=== PATIENT | male | born 1995 | race Caucasian/White ===

== ENCOUNTER 2017-04-15 19:16 | Emergency (ER) | payer OTHER ==
[2017-04-15 19:22] VITALS: BP 121/77
[2017-04-15] MEDS ORDERED: LIDOCAINE 1% 2 ML VIAL ONE (19:34)
--- NOTE | 2017-04-15 19:38 | ED Physician Documentation ---
PD HPI UPPER EXT INJURY - Stated complaint Stated Complaint: LEFT THUMB LACERATION - Chief complaint Chief Complaint: Laceration - History obtained from History obtained from: Patient - History of Present Illness Location: Left, Other (thumb) Type of injury: Laceration Where injury occurred: Home Timing - duration: Hours (1) Timing - details: Abrupt onset Pain level max: 3 Pain level now: 2 Improved by: Rest Worsened by: Moving, Palpating Associated symptoms: No: Weakness, Numbness, Tingling, Swelling Contributing factors: No: Anticoagulated, Prior ortho surgery - Additonal information Additional information: cut hand on a catch basin cleaner that was off. L thumb laceration. Tetanus UTD. Pt is right handed. Review of Systems Neurologic: denies: Focal weakness, Numbness PD PAST MEDICAL HISTORY - Past Medical History Past Medical History: No - Past Surgical History Past Surgical History: Yes General: Other - Social History Does the pt smoke?: Yes Smoking Status: Current every day smoker Does the pt drink ETOH?: Yes Does the pt have substance abuse?: No - Immunizations Immunizations are current?: Yes PD ED PE NORMAL - Vitals Vital signs reviewed: Yes - General General: Alert and oriented X 3, No acute distress - Derm Derm: Warm and dry - Neuro Neuro: Alert and oriented X 3 PD ED PE EXPANDED - Extremities LAKSHMI UE/Hands Visual: 1 - laceration (1cm, linear, subcutaneous. NVI. no tendon injury.) Results - Vitals Vitals: Vital Signs - 24 hr 04/15/17 19:21 Temperature 37 C Heart Rate 78 Respiratory 16 Rate Blood Pressure 121/77 O2 Saturation 98 Oxygen O2 Source Room air Procedures - Laceration (location) L thumb Length in cm: 1 Wound type: Linear Neurovascular status: Sensory intact, Motor intact, Vascular intact Tendon involvement: Tendon intact Anesthesia: Lidocaine 1% Wound Preparation: Irrigated copiously NS Skin layer closure: Nylon, Interrupted, Size #-0 - enter number (4), Sutures - enter # (3) Other: Patient tolerated well, No complications, Neurovascular intact, Dressing applied, Tetanus UTD Complexity: Simple PD MEDICAL DECISION MAKING - ED course Complexity details: considered differential, d/w patient ED course: Patient with a left thumb laceration. This was repaired. No foreign body. No tendon laceration. Warnings of infection and instructions on wound care given at bedside. Also counseled on how to minimize scarring. Patient counseled regarding signs and symptoms for which I believe and urgent re-evaluation would be necessary. Patient with good understanding of and agreement to plan and is comfortable going home at this time This document was made in part using voice recognition software. While efforts are made to proofread this document, sound alike and grammatical errors may occur. Departure - Departure Disposition: 01 Home, Self Care Clinical Impression: Laceration Condition: Good Instructions: ED Laceration Hand Follow-Up: RANDAL Cortes [Provider Group] Comments: Follow-up with your doctor in 10-14 days for suture removal. Return if you notice redness, swelling or drainage from the wound. Wear the splint for the next 48 hours.
== END 2017-04-15 19:42 | disposition home or self-care (01) ==
LOC: ED 19:16
DX: S61.012A Laceration without foreign body of left thumb without damage to nail, initial encounter (principal); W29.0XXA Contact with powered kitchen appliance, initial encounter; F17.200 Nicotine dependence, unspecified, uncomplicated
CPT/HCPCS: 12001; 99282; 99283

== ENCOUNTER 2019-02-08 03:45 | Observation (INO) | payer OTHER ==
[2019-02-08] MEDS ORDERED: HYDROmorphone 1 MG/ML CARPUJECT IVP STA ×2 (04:01→05:27)
[2019-02-08] MEDS ORDERED: SODIUM CHLORIDE 0.9% 1,000 ML IV ONE (04:01)
[2019-02-08] MEDS ORDERED: ONDANSETRON 4 MG/2 ML VIAL IVP STA (04:01)
--- NOTE | 2019-02-08 04:01 | ED Physician Documentation ---
PD HPI ABD PAIN - Stated complaint Stated Complaint: ABD PX - Chief complaint Chief Complaint: Abd Pain - History obtained from History obtained from: Patient - History of Present Illness Timing - onset: Today Timing - duration: Hours (7) Timing - details: Gradual onset Pain level now: 9 Quality: Stabbing Location: RUQ Radiation: No: Lower back Associated symptoms: Nausea, Vomiting. No: Fever, Diarrhea, Dysuria, Hematuria, Dizzy, Near syncope / syncope, Testicular pain Recently seen: Not recently seen - Additional information Additional information: This is a 23-year-old man who presents with complaints that there is something "in his stomach" and it hurts. About 9:00 last night he developed a stabbing twisting pain began vomiting. He has had 4 episodes of emesis last being here in the emergency department. Now the pain seems to be emanating from the right upper quadrant but it santamaria and shoots across the left upper abdomen. Denies any back pain. He has not had diarrhea. He ate some beef for dinner last night but does not think that that is what made him sick. He has not been around anyone else that he knows is ill. He denies any fever although he did break out in sweats. Denies testicular pain. No dysuria. No sore throat or coughing. The patient is in the [employer]. No history of any abdominal surgeries. Review of Systems Constitutional: reports: Sweats. denies: Fever Ears: denies: Ear pain Nose: denies: Congestion Throat: denies: Sore throat Cardiac: denies: Chest pain / pressure Respiratory: denies: Dyspnea, Cough GI: reports: Abdominal Pain, Nausea, Vomiting. denies: Constipation, Diarrhea : denies: Dysuria Musculoskeletal: denies: Back pain Neurologic: denies: Focal weakness, Near syncope PD PAST MEDICAL HISTORY - Past Surgical History Past Surgical History: Yes General: Other - Allergies Allergies/Adverse Reactions: Allergies Allergy/AdvReac Type Severity Reaction Status Date / Time No Known Drug Allergies Allergy Verified 02/08/19 03:54 - Social History Does the pt smoke?: Yes Smoking Status: Current every day smoker Does the pt drink ETOH?: Yes Does the pt have substance abuse?: No - Immunizations Immunizations are current?: Yes PD ED PE NORMAL - Vitals Vital signs reviewed: Yes - General General: Alert and oriented X 3, No acute distress, Well developed/nourished, Other (He is laying on the exam table on his R side with his left arm hanging off the side of the bed holding an emesis bag with frothy white liquid in it.) - HEENT HEENT: Atraumatic, PERRL, Moist mucous membranes - Neck Neck: No adenopathy - Cardiac Cardiac: RRR, No murmur, Strong equal pulses - Respiratory Respiratory: No respiratory distress, Clear bilaterally - Abdomen Abdomen: Soft, Other (Patient has diffuse tenderness and is pushing my hands away as I am palpating.). No: Normal bowel sounds (Hypoactive bowel tones) - Derm Derm: Normal color, Warm and dry, No rash - Neuro Neuro: Alert and oriented X 3, prestidigitator 2-12 intact, No motor deficit, No sensory deficit, Normal speech Results - Vitals Vitals: Vital Signs - 24 hr 02/08/19 02/08/19 03:50 06:09 Temperature 36.5 C Heart Rate 85 88 Respiratory 16 16 Rate Blood Pressure 133/98 H 101/51 L O2 Saturation 100 98 Oxygen O2 Source Room air - Labs Labs: Laboratory Tests 02/08/19 02/08/19 02/08/19 04:05 04:05 04:05 WBC 11.5 H RBC 4.70 Hgb 14.8 Hct 42.9 MCV 91.3 MCH 31.5 H MCHC 34.5 RDW 12.4 Plt Count 294 MPV 10.1 Neut # (Auto) 9.8 H Lymph # (Auto) 1.1 L [place] # (Auto) 0.5 Eos # (Auto) 0.1 Baso # (Auto) 0.1 Absolute Nucleated RBC 0.00 Nucleated RBC % 0.0 Sodium 141 Potassium 3.5 Chloride 99 L Carbon Dioxide 29 Anion Gap 13.0 BUN 15 Creatinine 1.1 Estimated GFR (MDRD) 82 L Glucose 136 H Calcium 10.2 Total Bilirubin 0.9 AST 23 ALT 20 Alkaline Phosphatase 52 Total Protein 8.5 H Albumin 5.2 Globulin 3.3 Albumin/Globulin Ratio 1.6 Lipase 27 Urine Color YELLOW Urine Clarity CLEAR Urine pH 7.5 Ur Specific [place] 1.015 Urine Protein NEGATIVE Urine Glucose (UA) NEGATIVE Urine Ketones 15 H Urine Occult Blood NEGATIVE Urine Nitrite NEGATIVE Urine Bilirubin NEGATIVE Urine Urobilinogen 1 (NORMAL) Ur Leukocyte Esterase NEGATIVE Ur Microscopic Review NOT INDICATED Urine Culture Comments NOT INDICATED Ethyl Alcohol 7.3 PD MEDICAL DECISION MAKING - ED course Complexity details: reviewed results, re-evaluated patient, d/w patient, d/w family, d/w hearing consultant ED course: Patient was given a liter of saline as well as Dilaudid 1 mg and Zofran 4 mg IV. He was feeling better so that he was still having some pain if he moved around. His abdomen now was soft but he was still guarding with some rebound particularly in the lower quadrants bilaterally. He was offered more pain medications which he declined and I have ordered a CT of the abdomen pelvis with IV contrast. 0611: Patient received another milligram of Dilaudid IV. The scan shows a small bowel obstruction. He has not had any prior surgeries. He reports a history of what sounds like an ileus when he was in his teens that required NG tube placement but no surgery related to a viral illness. Will discuss with the surgeon. NG tube ordered. 0633: Discussed with the surgeon Dr. Peña who will consult on the patient. Discussed with the hospitalist who has agreed to accept the patient for admission. The patient is aware of the diagnosis and plan. Departure - Departure Disposition: 66 [facility] DC/Xfer Clinical Impression: SBO (small bowel obstruction) Condition: Good
[2019-02-08 04:29] LABS: BASOPHILS # (AUTO) 0.1 10^3/uL (0.0-0.1); BASOPHILS % (AUTO) 0.4 %; EOSINOPHILS # (AUTO) 0.1 10^3/uL (0.0-0.7); EOSINOPHILS % (AUTO) 0.4 %; HGB - HEMOGLOBIN 14.8 g/dL (14.0-18.0); LYMPHOCYTES # (AUTO) 1.1 10^3/uL (1.5-3.5); LYMPHOCYTES % (AUTO) 9.3 %; MEAN CORPUSCULAR HEMOGLOBIN 31.5 pg (27.0-31.0); MEAN CORPUSCULAR HGB CONC 34.5 g/dL (32.0-36.0); MEAN CORPUSCULAR VOLUME 91.3 fL (80.0-94.0); MEAN PLATELET VOLUME 10.1 fL (7.4-11.4); MONOCYTES # (AUTO) 0.5 10^3/uL (0.0-1.0); MONOCYTES % (AUTO) 4.5 %; NEUTROPHILS # (AUTO) 9.8 10^3/uL (1.5-6.6); PLT - PLATELET COUNT 294 10^3/uL (130-450); RED CELL DISTRIBUTION WIDTH 12.4 % (12.0-15.0); WHITE BLOOD COUNT 11.5 x10^3/uL (4.8-10.8)
[2019-02-08 04:30] LABS: BILIRUBIN,URINE NEGATIVE (NEGATIVE); GLUCOSE, URINE (UA) NEGATIVE (NEGATIVE); KETONES,URINE (UA) 15 mg/dL (NEGATIVE); LEUKOCYTE ESTERASE, URINE NEGATIVE (NEGATIVE); NITRITE,URINE NEGATIVE (NEGATIVE); OCCULT BLOOD,URINE NEGATIVE (NEGATIVE); PH,URINE 7.5 PH (5.0-7.5); PROTEIN,URINE NEGATIVE (NEGATIVE); UROBILINOGEN,URINE 1 (NORMAL) E.U./dL (NORMAL)
[2019-02-08 04:31] LABS: CLARITY,URINE CLEAR (CLEAR)
[2019-02-08 04:37] LABS: ALBUMIN 5.2 g/dL (3.2-5.5); ALBUMIN/GLOBULIN RATIO 1.6 (1.0-2.2); BILIRUBIN,TOTAL 0.9 mg/dL (0.2-1.0); CALCIUM 10.2 mg/dL (8.5-10.3); CREATININE 1.1 mg/dL (0.6-1.2); TOTAL PROTEIN 8.5 g/dL (6.7-8.2)
[2019-02-08] MEDS ORDERED: IOVERSOL 320 100 ML VIAL IVP ONE ×2 (05:17→05:37)
--- NOTE | 2019-02-08 05:56 | CT Report ---
Reason: abdominal pain Procedure Date: 02/08/2019 Accession Number: [id number] / [id number] Procedure: CT - Abdomen/Pelvis W CPT Code: Final Report FULL RESULT: EXAM: CT ABDOMEN AND PELVIS EXAM DATE: 02/08/2019 05:39 AM CLINICAL HISTORY: Abdominal pain. COMPARISONS: None. TECHNIQUE: Routine helical CT imaging was performed through the abdomen and pelvis. IV contrast: Yes. Enteric contrast: No. Reconstructions: Coronal and sagittal. In accordance with CT protocol optimization, one or more of the following dose reduction techniques were utilized for this exam: automated exposure control, adjustment of mA and/or KV based on patient size, or use of iterative reconstructive technique. FINDINGS: Lung Bases: Unremarkable. Liver: Unremarkable. No suspicious masses. Gallbladder/Bile Ducts: Unremarkable. Spleen: Unremarkable. Pancreas: Unremarkable. Adrenal Glands: Unremarkable. Kidneys: Unremarkable. No suspicious masses or hydronephrosis. Peritoneal Cavity/Bowel: Mid small bowel obstruction with transition in the anterior left lower abdomen, possibly due to an adhesion. Mild mesenteric edema adjacent to the dilated loops of proximal bowel. No gross bowel wall thickening or free air. Pelvic Organs: Bladder and prostate appear unremarkable. Vasculature: No aneurysms or other significant abnormality. Bones: No significant abnormality. Other: None. IMPRESSION: Mid small bowel obstruction with transition in the anterior left lower abdomen, possibly due to an adhesion. Mild mesenteric edema. RADIA
[2019-02-08] MEDS ORDERED: ONDANSETRON 4 MG/2 ML VIAL IVP PRN (06:44)
[2019-02-08] MEDS ORDERED: SODIUM CHLORIDE FLUSH 0.9% 10 ML SYRINGE IVP PRN (06:44)
[2019-02-08] MEDS ORDERED: LACTATED RINGERS 1,000 ML IV SCH (07:00)
[2019-02-08] MEDS ORDERED: PANTOPRAZOLE 40 MG TABLET PO SCH (07:00)
[2019-02-08] MEDS ORDERED: D5.45NS W/20 MEQ KCL 1,000 ML IV SCH (08:00)
[2019-02-08] MEDS ORDERED: METOCLOPRAMIDE 10 MG/2 ML VIAL IVP PRN (08:05)
[2019-02-08] MEDS: MORPHINE 2 MG/ML CARPUJECT IVP PRN ×2 (08:35→12:58)
[2019-02-08] MEDS ORDERED: ENOXAPARIN 40 MG/0.4 ML SYRINGE SUBQ SCH (09:00)
[2019-02-08] MEDS ORDERED: SODIUM CHLORIDE FLUSH 0.9% 10 ML SYRINGE IVP SCH (09:00)
--- NOTE | 2019-02-08 11:24 | HISTORY & PHYSICAL EXAMINATION ---
Chief Complaint - Chief Complaint Chief Complaint: N/V and abdominal pain History of Present Illness - History of Present Illness HPI Comment/Other: Mr. Morales is a 23-year-old man otherwise healthy, who presents with complaint of nausea, vomiting and abdominal pain. pt report he started nausea and vomiting from last night 8-9pm. Then he had four times of vomiting. In the morning 2am, pt state he started to have sharp abdominal pain from upper right quadrant pain, moving into lower quadrant abdominal pain. He report he was eating normal food. He state he had similar episode about 6 yrs ago ended with NG tube and suction, then the problem was resolved. he denies previous abdominal surgery, or any GI diseases. His last bowel movement was last night before he had nausea and vomiting. He denies fever, chill, chest pain, headache or other complaints. CT of abdomen reveals mild small bowel obstruction with transition in the anterior left lower abdomen, possible due to an adhesion. Route lab test reveals mild elevated WBC, otherwise is unremarkable. pt is hemodynamically stable now. pt is admitted for small bowel obstruction. surgeon was called by ER. History - Past Medical History MRSA Hx?: No - Past Surgical History General: reports: Other - Family & Social History Family History: Mother: Alive and Well (both are health), Father: Alive and Well Family History Comment/Other: pt report his parants both are health. his siblings are health either. Social History Notes: pt report he is working at [employer]. he denies smoker, alcohol and drug issue. - POLST POLST Status: Full Code Meds/Allgy - Allergies Allergies/Adverse Reactions: Allergies Allergy/AdvReac Type Severity Reaction Status Date / Time No Known Drug Allergies Allergy Verified 02/08/19 03:54 Review of Systems - Constitutional Constitutional: denies: Fatigue, Fever, Chills, Malaise, Weakness, Poor appetite, Diaphoresis, Night sweats - Eyes Eyes: denies: Pain, Irritation, Amaurosis, Blurred vision, Spots in vision, Field loss, Vision loss, Dipolpia - Ears, Nose & Throat Ears, Nose & Throat: denies: Ear pain, Hearing loss, Hearing aids, Tinnitus, Vertigo, Nasal pain, Nasal discharge, Nosebleeds, Nasal obstruction, Postnasal drainage, Dentures, Hoarseness, Mouth lesions, Bleeding gums - Cardiovascular Cariovascular: denies: Irregular heart rate, Palpitations, Chest pain, Edema, Lightheadedness, Syncope, Exertional dyspnea, Decr. exercise tolerance - Respiratory Respiratory: denies: Cough, Sputum production, Wheezing, Snoring, Hemoptysis, Orthopnea, SOB at rest, SOB with exertion - Gastrointestinal Gastrointestinal: reports: Abdominal pain, Nausea, Vomiting. denies: Abdominal distention, Constipation, Diarrhea, Change in bowel habits, Rectal bleeding, Black stools, Bloody stools, Bile emesis, Ashok blood emesis, Coffee grounds emesis, Reflux/heartburn - Genitourinary Genitourinary: denies: Dysuria, Frequency, Urgency, Hematuria, Incontinence, Flank pain, Nocturia, Urethral discharge - Musculoskeletal Musculoskeletal: denies: Muscle pain, Back pain, Muscle aches, Stiffness, Limited range of motion, Muscle weakness, Gout, Joint pain - Integumentary Integumentary: denies: Rash, Pruritis, Lesions, Dryness, Lumps, Acne, Pigment changes, Nail changes - Neurological Neurological: denies: General weakness, Focal weakness, Headache, Dizziness, Numbness, Memory problems, Pre-existing deficit, Abnormal gait, Seizures, Inc oordination, Slurred speech - Psychiatric Psychiatric: denies: Depression, Anxiety, Suicidal, Delusions, Hallucinations, Homicidal - Endocrine Endocrine: denies: Polyuria, Polydypsia, Polyphagia, Intolerance to cold - Hematologic/Lymphatic Hematologic/Lymphatic: denies: Anemia, Bruising, Petechiae, Blood clots, Lymphadenopathy, Bleeding tendencies Exam - Vital Signs Reviewed Vital Signs: Yes Vital Signs: Vital Signs x48h Temp Pulse Pulse Resp BP BP Pulse Ox 02/08/19 07:40 36.7 C 79 18 115/59 L 100 02/08/19 06:09 88 16 101/51 L 98 02/08/19 03:50 36.5 C 85 16 133/98 H 100 - Physical Exam General Appearance: positive: No acute distress, Alert. negative: Lethargic Eyes Bilateral: positive: Normal inspection, PERRL, No lid inflammation ENT: positive: ENT inspection nml, Pharynx nml, No signs of dehydration. negative: Purulent nasal drainage Neck: positive: Nml inspection, Thyroid nml, No JVD, Trachea midline. negative: Thyromegaly, Lymphadenopathy (R), Lymphadenopathy (L), Stiff neck, Tracheal deviation Respiratory: positive: Chest non-tender, No respiratory distress, Breath sounds nml. negative: Wheezes, Rales, Rhonchi Cardiovascular: positive: Regular rate & rhythm, No murmur, No gallop. negative: Irregularly irregular, Extrasystoles, Tachycardia, Bradycardia, JVD present, Systolic murmur Peripheral Pulses: positive: 2+ Abdomen: positive: Non-tender, No organomegaly, Nml bowel sounds, No distention, Guarding. negative: Tenderness, Rebound Back: positive: Nml inspection. negative: CVA tenderness (R), CVA tenderness (L) Skin: positive: Color nml, No rash, Warm, Dry. negative: Cyanosis, Diaphoresis, Pallor Extremities: positive: Non-tender, Full ROM, Nml appearance. negative: Calf tenderness, Cyndee's sign/cords Neurologic/Psychiatric: positive: Oriented x3, Motor nml, Sensation nml, Mood/affect nml. negative: Weakness, Sensory loss, Facial droop, Slurred/abnml speech, Depressed mood/affect Sepsis Event Note (H) - Evaluation Current Stage of Sepsis: Ruled out Conclusion/Plan - Problem List (1) SBO (small bowel obstruction) Conclusion/Plan: CT of abdomen reveals mild SBO, possible due to adhesion. pt had N/V and lower quadrant abdominal pain consult with surgeon NPO except meds for bowel rest encourage pt safely walk pain control IVF of NS (2) Nausea and vomiting Conclusion/Plan: it is likely from pt's SBO. now in the hospital pt had no more nausea and vomiting order NG tube Zofran and Reglan PRN IVF of NS lab and vital monitor (3) Abdominal pain Conclusion/Plan: it is likely from pt's SBO pain control, reduce opiates to be used as possible encourage pt ambulate (4) Full code status Conclusion/Plan: pt request full code - Lab Results Fish Bones: 02/08/19 04:05 02/08/19 04:05 Core Measures - Anticipated LOS I expect patient to be DC'd or transferred within 96 hours.: Yes - DVT/VTE - Prophylaxis VTE/DVT Device ordered at admit?: Yes VTE/DVT Prophylaxis med ordered at admit?: Yes
[2019-02-08 14:56] LABS: MUDS CUTOFF CONCENTRATIONS CUTOFF CONC BELOW:
--- NOTE | 2019-02-08 14:56 | CONSULTATION NOTE ---
Referring Provider Name of Referring Provider:: Wenceslao Consult Date: 02/08/19 Chief Complaint - Chief Complaint Chief Complaint: Abd pain History of Present Illness - Admitted From Admitted From:: ER - History of Present Illness HPI Comment/Other: This is a 23-year-old man who presents with complaints that there is something "in his stomach" and it hurts. About 9:00 last night he developed a stabbing twisting pain began vomiting. He has had 4 episodes of emesis last being here in the emergency department. Now the pain seems to be emanating from the right upper quadrant but it santamaria and shoots across the left upper abdomen. Denies any back pain. He has not had diarrhea. He ate some beef for dinner last night but does not think that that is what made him sick. He has not been around anyone else that he knows is ill. He denies any fever although he did break out in sweats. Denies testicular pain. No dysuria. No sore throat or coughing. The patient is in the [employer]. No history of any abdominal surgeries. Additionally, the patient states he ate 2 peanut butter and jelly sandwiches after his dinner, it wasn't long thereafter his symptoms began. Abd CT is read as showing a mid small bowel obst. Review of Systems Constitutional: reports: Sweats. denies: Fever Ears: denies: Ear pain History - Past Medical History Cardiovascular: reports: None Respiratory: reports: None Neuro: reports: None Endocrine/Autoimmune: reports: None GI: reports: Other : reports: None Psych: reports: Depression Musculoskeletal: reports: None Derm: reports: None MRSA Hx?: No Other Past Medical History: 2013 gastro virus needing NG tube - Past Surgical History General: reports: Other - Family & Social History Family History: Mother: Alive and Well (both are health), Father: Alive and Well Family History Comment/Other: pt report his parants both are health. his siblings are health either. Social History Notes: pt report he is working at [employer]. he denies smoker, alcohol and drug issue. - POLST POLST Status: Full Code Meds/Allgy - Home Medications Home Medications: Ambulatory Orders Medication Instructions Recorded Confirmed Calcium Carbonate [Tums (Calcium 500 mg PO PRN PRN 02/08/19 02/08/19 Carbonate 500mg)] Escitalopram [Lexapro] 10 mg PO DAILY 02/08/19 02/08/19 diphenhydrAMINE [Benadryl] 25 mg PO ONCE PRN 02/08/19 02/08/19 - Allergies Allergies/Adverse Reactions: Allergies Allergy/AdvReac Type Severity Reaction Status Date / Time No Known Drug Allergies Allergy Verified 02/08/19 03:54 Review of Systems - Gastrointestinal Gastrointestinal: reports: Other (Passing flatus. No N/V/D) Exam - Vital Signs Reviewed Vital Signs: Yes Vital Signs: Vital Signs x48h Temp Pulse Resp BP Pulse Ox 02/08/19 13:00 36.7 C 59 L 16 100/46 L 97 02/08/19 07:40 36.7 C 79 18 115/59 L 100 - Physical Exam General Appearance: positive: No acute distress Eyes Bilateral: positive: Normal inspection Neck: positive: Nml inspection Respiratory: positive: Chest non-tender, No respiratory distress, Breath sounds nml Cardiovascular: positive: Regular rate & rhythm Abdomen: positive: Non-tender (This young male is in [place]. Abd soft and basically non-tender. No rebound or guarding.), Nml bowel sounds, No distention Conclusion and Plan - Lab Results Laboratory Results 02/08/19 04:05: Urine Color YELLOW, Urine Clarity CLEAR, Urine pH 7.5, Ur Specific [place] 1.015, Urine Protein NEGATIVE, Urine Glucose (UA) NEGATIVE, Urine Ketones 15 H, Urine Occult Blood NEGATIVE, Urine Nitrite NEGATIVE, Urine Bilirubin NEGATIVE, Urine Urobilinogen 1 (NORMAL), Ur Leukocyte Esterase NEGATIVE, Ur Microscopic Review NOT INDICATED, Urine Culture Comments NOT INDICATED 02/08/19 04:05: Sodium 141, Potassium 3.5, Chloride 99 L, Carbon Dioxide 29, Anion Gap 13.0, BUN 15, Creatinine 1.1, Estimated GFR (MDRD) 82 L, Glucose 136 H, Calcium 10.2, Total Bilirubin 0.9, AST 23, ALT 20, Alkaline Phosphatase 52, Total Protein 8.5 H, Albumin 5.2, Globulin 3.3, Albumin/Globulin Ratio 1.6, Lipase 27, Ethyl Alcohol 7.3 02/08/19 04:05: WBC 11.5 H, RBC 4.70, Hgb 14.8, Hct 42.9, MCV 91.3, MCH 31.5 H, MCHC 34.5, RDW 12.4, Plt Count 294, MPV 10.1, Neut # (Auto) 9.8 H, Lymph # (Auto) 1.1 L, [place] # (Auto) 0.5, Eos # (Auto) 0.1, Baso # (Auto) 0.1, Absolute Nucleated RBC 0.00, Nucleated RBC % 0.0 - Diagnosis Diagnosis: Functional ileus likely secondary to overeating in particular peanut butter sandwiches x 2 with scant liquid with it. - Plan Plan: Recommend clear liquids to [facility] when criteria met as per hospitalist.
[2019-02-08 15:11] LABS: AMPHETAMINE SCREEN,URINE NEGATIVE (NEGATIVE); BENZODIAZEPINES SCREEN, URINE NEGATIVE (NEGATIVE); COCAINE SCREEN URINE NEGATIVE (NEGATIVE); METHADONE SCREEN, URINE NEGATIVE (NEGATIVE); METHAMPHETAMINES SCREEN, URINE NEGATIVE (NEGATIVE); OPIATE SCREEN, URINE POSITIVE (NEGATIVE); OXYCODONE SCREEN, URINE NEGATIVE (NEGATIVE); PROPOXYPHENE SCREEN, URINE NEGATIVE (NEGATIVE); TRICYCLIC ANTIDEPRESSANT,URINE NEGATIVE (NEGATIVE)
--- NOTE | 2019-02-08 17:42 | Discharge Plan ---
Discharge Plan Problem Reviewed?: Yes Disposition: Home, Self Care Condition: Stable Diet: Regular Activity Restrictions: Activity as Tolerated Shower Restrictions: No (fall precaution) Health Concerns: small bowel obstruction Plan of Treatment: you tolerate regular diet. you deny nausea, vomiting or abdominal pain. surgeon say you can go home today also.your small bowel obstruction is likely from functional ileus secondary to overeating in particular peanut butter sandwiches with scant liquid, advise you keep hydration and prevention for that. Care Goals: stabilization and improvement of your medical condition Assessment: discussed with your medical conditions and care plan, you agree the plan Additional Instructions or Follow Up instructions: you may followup your PCP in one to two weeks. should your symptoms return or worsen, you may present ER or call 911 for help No Smoking: If you smoke, Please STOP! Call for help.
[2019-02-08 17:47] VITALS: BP 109/47
--- NOTE | 2019-02-08 17:57 | DISCHARGE SUMMARY ---
"Discharge Summary Admit Date: 02/08/19 Discharge Date: 02/08/19 Discharging Provider: LISA Condition at Discharge: Stable Discharge Disposition: 01 Home, Self Care Discharge Facility Name: home - DIAGNOSES Admission Diagnoses: (1) SBO (small bowel obstruction) (2) Nausea and vomiting (3) Abdominal pain Discharge Diagnoses with Status of Each Condition: (1) SBO (small bowel obstruction) resolved clinically. pt tolerate regular diet, pt has no more nausea or vomiting , no more abdominal pain. pt passed gas now. surgeon state pt can be d/c today. (2) Nausea and vomiting resolved (3) Abdominal pain resolved - HPI History of Present Illness: Mr. Morales is a 23-year-old man otherwise healthy, who presents with complaint of nausea, vomiting and abdominal pain. pt report he started nausea and vomiting from last night 8-9pm. Then he had four times of vomiting. In the morning 2am, pt state he started to have sharp abdominal pain from upper right quadrant pain, moving into lower quadrant abdominal pain. He report he was eating normal food. He state he had similar episode about 6 yrs ago ended with NG tube and suction, then the problem was resolved. he denies previous abdominal surgery, or any GI diseases. His last bowel movement was last night before he had nausea and vomi ting. He denies fever, chill, chest pain, headache or other complaints. CT of abdomen reveals mild small bowel obstruction with transition in the anterior left lower abdomen, possible due to an adhesion. Route lab test reveals mild elevated WBC, otherwise is unremarkable. pt is hemodynamically stable now. pt is admitted for small bowel obstruction. surgeon was called by ER. - CONSULTS | PROCEDURES Consultations: Dr. alina Peña Procedures: no procedure - HOSPITAL COURSE Hospital Course: pt was admitted for nausea, vomiting and abdominal pain. pt was found to have mild small bowel obstruction. after treated in hospital, bowel rest, IVF, pain control, pt's acute medical problem is resolved. pt tolerate regular diet, pt has no more nausea or vomiting, no more abdominal pain. pt passed gas now. surgeon state pt can be d/c today. detail hospital course is as the below (1) SBO (small bowel obstruction) resolved clinically. pt tolerate regular diet, pt has no more nausea or vomiting, no more abdominal pain. pt passed gas now. surgeon state pt can be d/c today. (2) Nausea and vomiting resolved (3) Abdominal pain resolved - ALLERGIES Allergies/Adverse Reactions: Allergies Allergy/AdvReac Type Severity Reaction Status Date / Time No Known Drug Allergies Allergy Verified 02/08/19 03:54 - MEDICATIONS Home Medications: Ambulatory Orders Medication Instructions Recorded Confirmed Calcium Carbonate [Tums (Calcium 500 mg PO PRN PRN 02/08/19 02/08/19 Carbonate 500mg)] Escitalopram [Lexapro] 10 mg PO DAILY 02/08/19 02/08/19 diphenhydrAMINE [Benadryl] 25 mg PO ONCE PRN 02/08/19 02/08/19 - PHYSICAL EXAM AT DISCHARGE General Appearance: positive: No acute distress, Alert. negative: Lethargic Eyes Bilateral: positive: Normal inspection, PERRL, No lid inflammation ENT: positive: ENT inspection nml, Pharynx nml, No signs of dehydration. negative: Purulent nasal drainage Neck: positive: Nml inspection, Thyroid nml, No JVD, Trachea midline. negative: Thyromegaly, Lymphadenopathy (R), Lymphadenopathy (L), Stiff neck, Tracheal deviation Respiratory: positive: Chest non-tender, No respiratory distress, Breath sounds nml. negative: Wheezes, Rales, Rhonchi Cardiovascular: positive: Regular rate & rhythm, No murmur, No gallop. negative: Irregularly irregular, Extrasystoles, Tachycardia, Bradycardia, JVD present, Systolic murmur, Diastolic murmur Peripheral Pulses: positive: 2+ Abdomen: positive: Non-tender, No organomegaly, Nml bowel sounds, No distention. negative: Tenderness, Guarding, Rebound Back: positive: Nml inspection. negative: CVA tenderness (R), CVA tenderness (L) Skin: positive: Color nml, No rash, Warm, Dry. negative: Cyanosis, Diaphoresis, Pallor, Skin rash Extremities: positive: Non-tender, Full ROM, Nml appearance. negative: Calf tenderness, Cyndee's sign/cords Neurologic/Psychiatric: positive: Oriented x3, Motor nml, Sensation nml, Mood /affect nml. negative: Weakness, Sensory loss, Facial droop, Slurred/abnml speech, Depressed mood/affect - LABS Result Diagrams: 02/08/19 04:05 02/08/19 04:05 - SEPSIS Current Stage of Sepsis: Ruled out - FOLLOW UP Follow Up: you tolerate regular diet. you deny nausea, vomiting or abdominal pain. surgeon say you can go home today also.your small bowel obstruction is likely from functional ileus secondary to overeating in particular peanut butter sandwiches with scant liquid, advise you keep hydration and prevention for that. you may followup your PCP in one to two weeks. should your symptoms return or worsen, you may present ER or call 911 for help - TIME SPENT Time Spent in Discharge (Minutes): 40"
== END 2019-02-08 19:28 | disposition home or self-care (01) ==
LOC: ED 03:45 → MS2 06:44
PROVIDERS: ADMIT Nurse Practitioner Gerontology; ATTEND Nurse Practitioner Gerontology
DX: K56.609 Unspecified intestinal obstruction, unspecified as to partial versus complete obstruction (principal)
CPT/HCPCS: 36415; 74177; 80053; 80320; 81003; 83690; 85025; 96361; 96372; 96374; 96375; 96376; 99284; 99285; A9270; G0378; J1170; J1650; J2765; Q9967; 80306; 81001; 87086

== ENCOUNTER 2019-05-24 09:43 | Observation (INO) | payer OTHER ==
--- NOTE | 2019-05-24 10:23 | ED Physician Documentation ---
PD HPI ABD PAIN - Stated complaint Stated Complaint: ABDOMINAL PAIN - Chief complaint Chief Complaint: Abd Pain - History obtained from History obtained from: Patient - History of Present Illness Timing - onset: Today Timing - duration: Hours Timing - details: Abrupt onset, Still present Quality: Cramping, Aching, Fullness/distended Location: All over / everywhere Improved by: Vomiting. No: Position Worsened by: Eating, Palpation Associated symptoms: Nausea, Vomiting, Loss of appetite. No: Fever, Diarrhea, Constipation, Near syncope / syncope Similar symptoms before: Diagnosis (SBO episode in January 2019. States episode when 14 years old without obvious cause. Another episode when about 19-22 years old. Otherwise normal stools/eating usually.) Recently seen: Emergency Dept, Admitted (He states he has had several episodes similar to this. Most recent was this past fall and was hospitalized here at this hospital and resolved with IV fluids and medicines. He states his initial episode was around age 14 without any apparent cause. He also had another episode when he is around 18 or 19. 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 He does not have any known history of Crohn's or colitis. He has not had any prior work-up of these such as colonoscopy.) Review of Systems Constitutional: denies: Fever, Chills Nose: reports: Congestion. denies: Rhinorrhea / runny nose Throat: denies: Sore throat Cardiac: denies: Chest pain / pressure Respiratory: reports: Cough (mild). denies: Dyspnea GI: reports: Abdominal Pain (today), Abdominal Swelling, Nausea, Vomiting. denies: Constipation, Diarrhea, Hematemesis, Bloody / black stool : denies: Dysuria, Frequency Neurologic: reports: Generalized weakness. denies: Near syncope, Altered mental status, Headache PD PAST MEDICAL HISTORY - Past Medical History Cardiovascular: None Respiratory: None Neuro: None Endocrine/Autoimmune: None GI: Other : None Psych: Depression Musculoskeletal: None Derm: None - Past Surgical History Past Surgical History: No - Present Medications Home Medications: Ambulatory Orders Medication Instructions Recorded Confirmed Calcium Carbonate [Tums (Calcium 500 mg PO PRN PRN 02/08/19 02/08/19 Carbonate 500mg)] Escitalopram [Lexapro] 10 mg PO DAILY 02/08/19 02/08/19 diphenhydrAMINE [Benadryl] 25 mg PO ONCE PRN 02/08/19 02/08/19 - Allergies Allergies/Adverse Reactions: Allergies Allergy/AdvReac Type Severity Reaction Status Date / Time No Known Drug Allergies Allergy Verified 05/24/19 09:51 - Living Situation Living Situation: reports: Alone Living Arrangement: reports: At home - Social History Does the pt smoke?: Yes Smoking Status: Former smoker Does the pt drink ETOH?: Yes Does the pt have substance abuse?: No - Family History Family history: denies: DM - Immunizations Immunizations are current?: Yes - POLST POLST Status: Full Code PD ED PE NORMAL - Vitals Vital signs reviewed: Yes - General General: Alert and oriented X 3, Well developed/nourished, Other (Appears in pain and is holding an emesis bag with fresh emesis in it. No blood in the emesis.) - HEENT HEENT: Pharynx benign - Neck Neck: Supple, no meningeal sign, No adenopathy - Cardiac Cardiac: RRR, No murmur - Abdomen Abdomen: No organomegaly, Other (The abdomen is distended with diffuse tenderness but more in the upper abdomen. Bowel sounds are present and hyperactive.). No: Normal bowel sounds - Rectal Rectal: Deferred - Back Back: No CVA TTP - Derm Derm: Normal color, Warm and dry - Extremities Extremities: Normal ROM s pain, No edema, No calf tenderness / cord - Neuro Neuro: Alert and oriented X 3, No motor deficit, Normal speech Eye Opening: Spontaneous Motor: Obeys Commands Verbal: Oriented GCS Score: 15 Results - Vitals Vitals: Vital Signs - 24 hr 05/24/19 05/24/19 09:47 12:33 Temperature 36.6 C Heart Rate 87 77 Respiratory 17 15 Rate Blood Pressure 112/92 H 109/56 L O2 Saturation 100 96 Oxygen O2 Source Room air - Labs Labs: Laboratory Tests 05/24/19 05/24/19 05/24/19 10:15 10:15 10:15 WBC 7.4 RBC 4.46 L Hgb 13.8 L Hct 40.6 L MCV 91.0 MCH 30.9 MCHC 34.0 RDW 12.6 Plt Count 290 MPV 10.1 Neut # (Auto) 4.6 Lymph # (Auto) 2.0 Mcduffie # (Auto) 0.6 Eos # (Auto) 0.2 Baso # (Auto) 0.0 Absolute Nucleated RBC 0.00 Nucleated RBC % 0.0 ESR 7 Sodium 139 Potassium 3.6 Chloride 100 L Carbon Dioxide 29 Anion Gap 10.0 BUN 14 Creatinine 1.1 Estimated GFR (MDRD) 82 L Glucose 109 H Calcium 9.3 Magnesium 2.1 Total Bilirubin 0.6 AST 43 H ALT 102 H Alkaline Phosphatase 51 Total Protein 8.2 Albumin 4.9 Globulin 3.3 Albumin/Globulin Ratio 1.5 Lipase 32 TSH Urine Color Urine Clarity Urine pH Ur Specific [place] Urine Protein Urine Glucose (UA) Urine Ketones Urine Occult Blood Urine Nitrite Urine Bilirubin Urine Urobilinogen Ur Leukocyte Esterase Ur Microscopic Review Urine Culture Comments 05/24/19 05/24/19 10:15 11:00 WBC RBC Hgb Hct MCV MCH MCHC RDW Plt Count MPV Neut # (Auto) Lymph # (Auto) Mcduffie # (Auto) Eos # (Auto) Baso # (Auto) Absolute Nucleated RBC Nucleated RBC % ESR Sodium Potassium Chloride Carbon Dioxide Anion Gap BUN Creatinine Estimated GFR (MDRD) Glucose Calcium Magnesium Total Bilirubin AST ALT Alkaline Phosphatase Total Protein Albumin Globulin Albumin/Globulin Ratio Lipase TSH 0.91 Urine Color YELLOW Urine Clarity CLEAR Urine pH 7.0 Ur Specific [place] 1.020 Urine Protein NEGATIVE Urine Glucose (UA) NEGATIVE Urine Ketones NEGATIVE Urine Occult Blood NEGATIVE Urine Nitrite NEGATIVE Urine Bilirubin NEGATIVE Urine Urobilinogen 1 (NORMAL) Ur Leukocyte Esterase NEGATIVE Ur Microscopic Review NOT INDICATED Urine Culture Comments NOT INDICATED - Rads (name of study) abd CT Radiology: Prelim report reviewed, Discussed with rads (Findings consistent with small bowel obstruction with transition mid small bowel. No obvious masses.), See rad report PD MEDICAL DECISION MAKING - ED course Complexity details: reviewed results, re-evaluated patient (Appears more comfortable with diminished nausea and no vomiting after medications. We will continue with IV fluids and provide pain medicine as needed. I will talk with hospitalist and surgery.), considered differential (Symptoms consistent with recurrent bowel obstruction. Will get labs and CT scan.), d/w patient, d/w protection consultant (Talked with Dr. rapp he was on for surgery who will consult on the patient. I then talked with Dr. Silver who is the hospitalist.) Departure - Departure Disposition: ED Place in Observation Clinical Impression: SBO (small bowel obstruction) Abdominal pain Qualifiers: Abdominal location: generalized Qualified Code(s): R10.84 - Generalized abdominal pain Nausea and vomiting Qualifiers: Vomiting type: unspecified Vomiting Intractability: intractable Qualified Code(s): R11.2 - Nausea with vomiting, unspecified Condition: Stable Record reviewed to determine appropriate education?: Yes
[2019-05-24] MEDS ORDERED: SODIUM CHLORIDE 0.9% 1,000 ML IV ONE ×2 (10:45→13:28)
[2019-05-24] MEDS ORDERED: HYDROmorphone 1 MG/ML SYRINGE IVP STA ×2 (10:45→12:25)
[2019-05-24] MEDS ORDERED: ONDANSETRON 4 MG/2 ML VIAL IVP STA (10:45)
[2019-05-24 10:53] LABS: BASOPHILS % (AUTO) 0.5 %; EOSINOPHILS # (AUTO) 0.2 10^3/uL (0.0-0.7); EOSINOPHILS % (AUTO) 2.2 %; HGB - HEMOGLOBIN 13.8 g/dL (14.0-18.0); MEAN CORPUSCULAR HEMOGLOBIN 30.9 pg (27.0-31.0); MEAN PLATELET VOLUME 10.1 fL (7.4-11.4); MONOCYTES # (AUTO) 0.6 10^3/uL (0.0-1.0); MONOCYTES % (AUTO) 7.7 %; NEUTROPHILS # (AUTO) 4.6 10^3/uL (1.5-6.6); NEUTROPHILS % (AUTO) 62.2 %; PLT - PLATELET COUNT 290 10^3/uL (130-450); RED BLOOD COUNT 4.46 10^6/uL (4.70-6.10); RED CELL DISTRIBUTION WIDTH 12.6 % (12.0-15.0); WHITE BLOOD COUNT 7.4 x10^3/uL (4.8-10.8)
[2019-05-24] MEDS ORDERED: IOVERSOL 320 100 ML VIAL IVP ONE ×2 (10:54→11:51)
[2019-05-24 11:10] LABS: ALBUMIN 4.9 g/dL (3.2-5.5); ALBUMIN/GLOBULIN RATIO 1.5 (1.0-2.2); BILIRUBIN,TOTAL 0.6 mg/dL (0.2-1.0); CALCIUM 9.3 mg/dL (8.5-10.3); CREATININE 1.1 mg/dL (0.6-1.2); MAGNESIUM 2.1 mg/dL (1.7-2.8); TOTAL PROTEIN 8.2 g/dL (6.7-8.2)
[2019-05-24 11:12] LABS: BILIRUBIN,URINE NEGATIVE (NEGATIVE); GLUCOSE, URINE (UA) NEGATIVE (NEGATIVE); KETONES,URINE (UA) NEGATIVE (NEGATIVE); LEUKOCYTE ESTERASE, URINE NEGATIVE (NEGATIVE); NITRITE,URINE NEGATIVE (NEGATIVE); OCCULT BLOOD,URINE NEGATIVE (NEGATIVE); PROTEIN,URINE NEGATIVE (NEGATIVE); UROBILINOGEN,URINE 1 (NORMAL) E.U./dL (NORMAL)
[2019-05-24 11:18] LABS: CLARITY,URINE CLEAR (CLEAR)
--- NOTE | 2019-05-24 12:07 | CT Report ---
Reason: Abdominal pain, acute, nonlocalized Procedure Date: 05/24/2019 Accession Number: [id number] / [id number] Procedure: CT - Abdomen/Pelvis W CPT Code: Final Report FULL RESULT: EXAM: CT ABDOMEN AND PELVIS EXAM DATE: 05/24/2019 11:50 AM. CLINICAL HISTORY: Abdominal pain, acute, nonlocalized. COMPARISONS: ABDOMEN/PELVIS W/ 02/08/2019 5:29 AM. TECHNIQUE: Routine helical CT imaging was performed through the abdomen and pelvis. IV contrast: 90 mL OPTIRAY 320. Enteric contrast: No. Reconstructions: Coronal and sagittal. In accordance with CT protocol optimization, one or more of the following dose reduction techniques were utilized for this exam: automated exposure control, adjustment of mA and/or KV based on patient size, or use of iterative reconstructive technique. FINDINGS: Lung Bases: Unremarkable. Liver: Normal. No masses. Gallbladder/Bile Ducts: Unremarkable. Spleen: Normal. Pancreas: Normal. Adrenal Glands: Normal. Kidneys: Normal. No masses or hydronephrosis. Peritoneal Cavity/Bowel: There is small bowel obstruction with fluid-filled loops of bowel with fecalization in the left lower quadrant with transition point best seen on coronal image 17 series 5 and axial image 51 series 3, similar configuration to recent bowel obstruction. Maximal caliber of dilated loops is 4 cm. There is relative prominence of a number of nondistended small bowel loops. While no convincing second transition point is identified, this can be seen with closed-loop configuration which is not identified presently. Alternatively, early small bowel obstruction can mimic this appearance. Prominent mesenteric lymph nodes are seen, felt to be reactive. There is no significant free fluid. There is no free air. Pelvic Organs: Normal. The bladder and visualized pelvic organs are within normal limits. Vasculature: No aneurysms or other significant abnormality. Bones: No significant abnormality. Other: Coarse benign-appearing calcification is seen subdermally in the left scrotal region, see image 89 series 3. IMPRESSION: Small bowel obstruction with considerations regarding closed-loop versus open-loop configuration as described above. CRITICAL RESULT: The findings were discussed with Dr. Raines on 05/24/2019 at 12:06 PM. [place]
[2019-05-24] MEDS ORDERED: FAMOTIDINE 20 MG/2 ML VIAL IVP STA (12:32)
[2019-05-24] MEDS ORDERED: ONDANSETRON 4 MG/2 ML VIAL IVP PRN (12:36)
[2019-05-24] MEDS ORDERED: SODIUM CHLORIDE FLUSH 0.9% 10 ML SYRINGE IVP PRN (12:36)
[2019-05-24] MEDS ORDERED: ACETAMINOPHEN 325 MG TABLET PO PRN (12:36)
--- NOTE | 2019-05-24 12:48 | HISTORY & PHYSICAL EXAMINATION ---
Chief Complaint - Chief Complaint Chief Complaint: abdominal pain History of Present Illness - Admitted From Admitted From:: ER - History of Present Illness HPI Comment/Other: Mr. Morales is a 23-year-old male with hx of recurrent small bowel obstruction, who presents ER with complaint of nausea, vomiting and abdominal pain. pt report he started abdominal pain at this morning, strong nausea and vomiting once. he re port he had about four times of SBO in the past and last SBO was last year. He report his abdominal pain located at upper quadrant. He think his abdominal pain, nausea and vomiting are similar as his past. His last bowel movement was last night. He denies fever, chill, cough, chest pain. He report his diet habit is as usual. he denies any previous abdominal surgery, or any other GI problems. He has not had any prior work-up of these such as colonoscopy or EGD. CT of abdomen reveals small bowel obstruction with considerations regarding closed- loop versus open-loop configuration. Route lab test reveals unremarkable. pt is afebrile and hemodynamically stable. pt is admitted for small bowel obstruction. surgeon was called by ER. pt request full code for his code status. History - Past Medical History Cardiovascular: reports: None Respiratory: reports: None Neuro: reports: None Endocrine/Autoimmune: reports: None GI: reports: Other : reports: None Psych: reports: Depression Musculoskeletal: reports: None Derm: reports: None MRSA Hx?: No - Past Surgical History General: reports: Other - Family & Social History Family History: Mother: Alive and Well (both are health), Father: Alive and Well Family History Comment/Other: pt report his parants both are health. his siblings are health either. Social History Notes: pt report he is working at [employer]. he denies smoker, alcohol and drug issue. - POLST POLST Status: Full Code Meds/Allgy - Home Medications Home Medications: Ambulatory Orders Medication Instructions Recorded Confirmed Calcium Carbonate [Tums (Calcium 500 mg PO PRN PRN 02/08/19 02/08/19 Carbonate 500mg)] Escitalopram [Lexapro] 10 mg PO DAILY 02/08/19 02/08/19 diphenhydrAMINE [Benadryl] 25 mg PO ONCE PRN 02/08/19 02/08/19 - Allergies Allergies/Adverse Reactions: Allergies Allergy/AdvReac Type Severity Reaction Status Date / Time No Known Drug Allergies Allergy Verified 05/24/19 09:51 Review of Systems - Constitutional Constitutional: denies: Fatigue, Fever, Chills, Malaise, Weakness, Poor appet ite, Diaphoresis, Night sweats - Eyes Eyes: denies: Pain, Irritation, Amaurosis, Blurred vision, Spots in vision, Field loss, Vision loss, Dipolpia, Corrective lenses - Ears, Nose & Throat Ears, Nose & Throat: denies: Ear pain, Hearing loss, Hearing aids, Tinnitus, Vertigo, Nasal pain, Nasal discharge, Nosebleeds, Nasal obstruction, Nasal congestion, Postnasal drainage, Dentures, Sore throat, Hoarseness, Mouth lesions, Bleeding gums - Cardiovascular Cariovascular: denies: Irregular heart rate, Palpitations, Chest pain, Edema, Lightheadedness, Syncope, Exertional dyspnea, Decr. exercise tolerance - Respiratory Respiratory: denies: Cough, Sputum production, Wheezing, Snoring, Hemoptysis, Orthopnea, SOB at rest, SOB with exertion - Gastrointestinal Gastrointestinal: reports: Abdominal pain, Nausea, Vomiting. denies: Abdominal distention, Constipation, Diarrhea, Change in bowel habits, Rectal bleeding, Black stools, Bloody stools, Bile emesis, Ashok blood emesis, Coffee grounds emesis, Reflux/heartburn, Bloating - Genitourinary Genitourinary: denies: Dysuria, Frequency, Urgency, Hematuria, Incontinence, Flank pain, Nocturia, Urethral discharge - Musculoskeletal Musculoskeletal: denies: Muscle pain, Back pain, Muscle aches, Stiffness, Limited range of motion, Muscle weakness, Gout, Joint pain - Integumentary Integumentary: denies: Rash, Pruritis, Lesions, Dryness, Lumps, Acne, Pigment changes, Nail changes - Neurological Neurological: denies: General weakness, Focal weakness, Headache, Dizziness, Numbness, Memory problems, Pre-existing deficit, Abnormal gait, Seizures, Incoordination, Slurred speech - Psychiatric Psychiatric: denies: Depression, Anxiety, Suicidal, Delusions, Hallucinations, Homicidal - Endocrine Endocrine: denies: Polyuria, Polydypsia, Polyphagia, Intolerance to cold - Hematologic/Lymphatic Hematologic/Lymphatic: denies: Anemia, Bruising, Petechiae, Blood clots, Lymphadenopathy, Bleeding tendencies Exam - Vital Signs Vital Signs: Vital Signs x48h Temp Pulse Resp BP Pulse Ox 05/24/19 12:33 77 15 109/56 L 96 05/24/19 09:47 36.6 C 87 17 112/92 H 100 - Physical Exam General Appearance: positive: No acute distress, Alert. negative: Lethargic Eyes Bilateral: positive: Normal inspection, PERRL, EOMI, No lid inflammation ENT: positive: ENT inspection nml, Pharynx nml, No signs of dehydration. negative: Purulent nasal drainage Neck: positive: Nml inspection, Thyroid nml, No JVD, Trachea midline. negative: Thyromegaly, Lymphadenopathy (R), Lymphadenopathy (L), Stiff neck, Tracheal deviation Respiratory: positive: Chest non-tender, No respiratory distress, Breath sounds nml. negative: Wheezes, Rales, Rhonchi Cardiovascular: positive: Regular rate & rhythm, No murmur, No gallop. negative: Irregularly irregular, Extrasystoles, Tachycardia, Bradycardia, JVD present, Systolic murmur, Diastolic murmur Peripheral Pulses: positive: 2+ Abdomen: positive: No organomegaly, No distention, Tenderness, Abnml bowel sounds (reduced bowel sound). negative: Non-tender, Guarding, Rebound Back: positive: Nml inspection. negative: CVA tenderness (R), CVA tenderness (L) Skin: positive: Color nml, No rash, Warm, Dry. negative: Cyanosis, Diaphoresis, Pallor Extremities: positive: Non-tender, Full ROM, Nml appearance. negative: Calf tenderness, Cyndee's sign/cords Neurologic/Psychiatric: positive: Oriented x3, Motor nml, Sensation nml, Mood/affect nml. negative: Weakness, Sensory loss, Facial droop, Slurred/abnml speech, Depressed mood/affect Sepsis Event Note (H) - Evaluation Current Stage of Sepsis: Ruled out Conclusion/Plan - Problem List (1) SBO (small bowel obstruction) Conclusion/Plan: (1) SBO (small bowel obstruction) Conclusion/Plan: CT of abdomen reveals SBO. pt present nausea and once vomiting. pt has no vomiting now. no NG tube is needed now. consult with surgeon. pt has recurrent SBO, young age without another GI medical history. pt denies congenital or development deficit. Pt may have colonoscopy to try find the etiology. NPO for bowel rest encourage pt safely walk pain control IVF of NS (2) Nausea and vomiting Conclusion/Plan: it is likely from pt's SBO. now in the hospital pt had no more nausea and vomiti ng Zofran PRN IVF lab and vital monitor - Lab Results Fish Bones: 05/24/19 10:15 05/24/19 10:15 Core Measures - Anticipated LOS I expect patient to be DC'd or transferred within 96 hours.: Yes - DVT/VTE - Prophylaxis VTE/DVT Device ordered at admit?: Yes VTE/DVT Prophylaxis med ordered at admit?: Yes
[2019-05-24] MEDS: HYDROmorphone 0.5 MG/0.5 ML SYRINGE IVP PRN ×3 (14:43→21:06)
[2019-05-24] MEDS: DEXTROSE 5%-0.45% NACL 1,000 ML IV SCH ×2 (14:50→23:54)
--- NOTE | 2019-05-24 15:40 | PHARMACY PROGRESS NOTE ---
- Best Possible Medication History Admit Date and Time: 05/24/19 1236 Processed by: Pharmacy Medication History completed: Yes Patient Interview: Completed Secondary Source(s): Prescription bottles As the person ultimately responsible for medication therapy, providers are able to order a medication from an existing home medication list in [facility] via the "Reconcile Routine" prior to Confirmation of that medication by customer support representative. Such practice is discouraged except when the physician, in their clinical judgment, deems that a medical need exists for a medication without regard to previous use.
--- NOTE | 2019-05-24 16:40 | CONSULTATION NOTE ---
Referring Provider Name of Referring Provider:: Dr. Raines ED Consult Date: 05/24/19 Chief Complaint - Chief Complaint Chief Complaint: abd pain and nausea History of Present Illness - History of Present Illness HPI Comment/Other: 23yo M presented to ED today after sudden onset of abdominal pain. He developed nausea and vomiting with this. Has had four similar episdoes through his life, first at age 14, one at age 18, and last this past January. All have been self-limited, with or without NGT placement, within a day or two. He otherwise has normal bowel function and eats a regular diet without issue. Last BM was last night and he has passed gas here while in the ED. No distension or further n/v currently. Pt is quite tired. Has some soreness of his abdomen but no peritoneal signs. His labs are normal and CT shows dilated loops of small bowel that is quite similar to his imaging in January. He has never had an abdominal surgery and has no other significant medical issues. No family h/o GI malignancies or IBDs as far as he knows. He has never had further workup of this issue including endoscopy or outpatient imaging. History - Past Medical History Cardiovascular: reports: None Respiratory: reports: None Neuro: reports: None Endocrine/Autoimmune: reports: None GI: reports: Other : reports: None Psych: reports: Depression Musculoskeletal: reports: None Derm: reports: None MRSA Hx?: No - Past Surgical History General: reports: Other - Family & Social History Family History: Mother: Alive and Well (both are health), Father: Alive and Well Family History Comment/Other: pt report his parants both are health. his siblings are health either. Living arrangement: At home Living Situation: Alone Social History Notes: pt report he is working at [employer]. he denies smoker, alcohol and drug issue. - POLST POLST Status: Full Code Meds/Allgy - Home Medications Home Medications: Ambulatory Orders Medication Instructions Recorded Confirmed Calcium Carbonate [Tums (Calcium 500 mg PO PRN PRN 02/08/19 05/24/19 Carbonate 500mg)] Escitalopram [Lexapro] 20 mg PO DAILY 02/08/19 05/24/19 diphenhydrAMINE [Benadryl] 25 mg PO DAILY PRN 02/08/19 05/24/19 - Allergies Allergies/Adverse Reactions: Allergies Allergy/AdvReac Type Severity Reaction Status Date / Time No Known Drug Allergies Allergy Verified 05/24/19 09:51 Review of Systems - Gastrointestinal Gastrointestinal: reports: Abdominal pain, Abdominal distention, Change in bowel habits, Nausea, Vomiting - All Other Systems All Other Systems: reports: Reviewed and negative Exam - Vital Signs Reviewed Vital Signs: Yes Vital Signs: Vital Signs x48h Temp Pulse Pulse Resp BP BP Pulse Ox 05/24/19 15:59 36.7 C 68 18 116/55 L 99 05/24/19 14:20 36.7 C 85 17 114/58 L 100 05/24/19 12:33 77 15 109/56 L 96 05/24/19 09:47 36.6 C 87 17 112/92 H 100 - Physical Exam Comments/Other: AAO, NAD, male of healthy weight EOMI, MMM, no scleral icterus unlabored RA soft, non-distended, focal TTP DOMINIQUE/ R abdomen but no peritoneal signs; tattoos but no scars or incisions MAEW visible skin warm and dry Conclusion and Plan - Lab Results Laboratory Results 05/24/19 11:00: Urine Color YELLOW, Urine Clarity CLEAR, Urine pH 7.0, Ur Specific [place] 1.020, Urine Protein NEGATIVE, Urine Glucose (UA) NEGATIVE, Urine Ketones NEGATIVE, Urine Occult Blood NEGATIVE, Urine Nitrite NEGATIVE, Urine Bilirubin NEGATIVE, Urine Urobilinogen 1 (NORMAL), Ur Leukocyte Esterase NEGATIVE, Ur Microscopic Review NOT INDICATED, Urine Culture Comments NOT INDICATED 05/24/19 10:15: TSH 0.91 05/24/19 10:15: Sodium 139, Potassium 3.6, Chloride 100 L, Carbon Dioxide 29, Anion Gap 10.0, BUN 14, Creatinine 1.1, Estimated GFR (MDRD) 82 L, Glucose 109 H, Calcium 9.3, Magnesium 2.1, Total Bilirubin 0.6, AST 43 H, ALT 102 H, Alkaline Phosphatase 51, Total Protein 8.2, Albumin 4.9, Globulin 3.3, Albumin/Globulin Ratio 1.5, Lipase 32 05/24/19 10:15: ESR 7 05/24/19 10:15: WBC 7.4, RBC 4.46 L, Hgb 13.8 L, Hct 40.6 L, MCV 91.0, MCH 30.9, MCHC 34.0, RDW 12.6, Plt Count 290, MPV 10.1, Neut # (Auto) 4.6, Lymph # (Auto) 2.0, [place] # (Auto) 0.6, Eos # (Auto) 0.2, Baso # (Auto) 0.0, Absolute Nucleated RBC 0.00, Nucleated RBC % 0.0 - Diagnostic Imaging Results Diagnostic Imaging Results: positive: Final report reviewed, Read contemporaneously - Diagnosis Diagnosis: recurrent SBO of unknown etiology - Plan Plan: - no current n/v, pt defers NGT for now as he has resolved without it before and is tired and wants to try to sleep now (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
[2019-05-24] MEDS: SODIUM CHLORIDE FLUSH 0.9% 10 ML SYRINGE IVP SCH (16:47)
[2019-05-24] MEDS ORDERED: diphenhydrAMINE INJ 50 MG/ML VIAL IVP ONE (17:00)
[2019-05-25] MEDS: HYDROmorphone 0.5 MG/0.5 ML SYRINGE IVP PRN ×3 (00:04→07:35)
[2019-05-25] MEDS: SODIUM CHLORIDE FLUSH 0.9% 10 ML SYRINGE IVP SCH ×2 (02:53→07:39)
[2019-05-25 05:10] LABS: BASOPHILS % (AUTO) 0.5 %; EOSINOPHILS # (AUTO) 0.2 10^3/uL (0.0-0.7); EOSINOPHILS % (AUTO) 2.3 %; HGB - HEMOGLOBIN 13.1 g/dL (14.0-18.0); LYMPHOCYTES # (AUTO) 2.5 10^3/uL (1.5-3.5); LYMPHOCYTES % (AUTO) 33.8 %; MEAN CORPUSCULAR HEMOGLOBIN 31.6 pg (27.0-31.0); MEAN CORPUSCULAR HGB CONC 33.8 g/dL (32.0-36.0); MEAN CORPUSCULAR VOLUME 93.5 fL (80.0-94.0); MEAN PLATELET VOLUME 9.6 fL (7.4-11.4); MONOCYTES # (AUTO) 0.8 10^3/uL (0.0-1.0); MONOCYTES % (AUTO) 10.7 %; NEUTROPHILS # (AUTO) 3.8 10^3/uL (1.5-6.6); NEUTROPHILS % (AUTO) 52.3 %; PLT - PLATELET COUNT 262 10^3/uL (130-450); RED BLOOD COUNT 4.15 10^6/uL (4.70-6.10); RED CELL DISTRIBUTION WIDTH 12.6 % (12.0-15.0); WHITE BLOOD COUNT 7.4 x10^3/uL (4.8-10.8)
[2019-05-25 05:24] LABS: ALBUMIN 4.1 g/dL (3.2-5.5); ALBUMIN/GLOBULIN RATIO 1.4 (1.0-2.2); BILIRUBIN,TOTAL 0.9 mg/dL (0.2-1.0); CALCIUM 8.5 mg/dL (8.5-10.3); MAGNESIUM 2.1 mg/dL (1.7-2.8)
[2019-05-25] MEDS ORDERED: PANTOPRAZOLE 40 MG VIAL IVP SCH (07:00)
[2019-05-25] MEDS ORDERED: CALCIUM CARBONATE CHEW 500 MG TABLET PO PRN (08:24)
[2019-05-25] MEDS ORDERED: ESCITALOPRAM 10 MG TABLET PO SCH (09:00)
--- NOTE | 2019-05-25 12:07 | Discharge Plan ---
Discharge Plan Problem Reviewed?: Yes Disposition: Home, Self Care Condition: Good Prescriptions: Docusate Sodium 250Mg Capsule [Colace 250Mg Capsule] 250 mg PO DAILY #30 capsule Diet: Regular (low residue diet, daily Colace) Activity Restrictions: Activity as Tolerated Shower Restrictions: No Driving Restrictions: No Instruction Topics: Obstruction Sm Bowel, Diet Low Residue Health Concerns: Small bowel obstruction (recurrent) Abdominal pain Low-fiber (low residue) diet Tobacco dependence Plan of Treatment: Follow up outpatient for a work up with GI Stop smoking Get regular check ups Care Goals: Prevent a recurrence of your bowel obstructions Prevent hospital stays, or ED visits Follow up outpatient for a work up with GI Stop smoking Get regular check ups Assessment: You were admitted to the hospital since imaging showed a small bowel obstruction. You did not require an NG tube or surgical intervention. Your symptoms subsided and you were tolerating oral intake today. Since the cause is still not determined, you will need further work up outpatient. 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 No Smoking: If you smoke, Please STOP! Call for help.
--- NOTE | 2019-05-25 12:08 | PROVIDER PROGRESS NOTE ---
Subjective - Prog Note Date Prog Note Date: 05/25/19 Prog Note Time: 12:05 - Subjective Pt reports feeling: Improved Subjective: Feeling much better. Nausea and distension has essentially resolved. Tolerating po and passing flatus. Denies any abdominal pain now. Current Medications - Current Medications Current Medications: Active Medications Generic Name Dose Route Start Last Admin Trade Name Freq PRN Reason Stop Dose Admin Acetaminophen 650 mg 05/24/19 12:36 Tylenol PO Q4HR PRN Pain 1 to 4 Calcium Carbonate/Glycine 500 mg 05/25/19 08:24 Tums PO PRN PRN Heartburn Escitalopram Oxalate 20 mg 05/25/19 09:00 05/25/19 10:51 Lexapro PO 20 mg DAILY ORTEGA Administration Hydromorphone HCl 0.5 mg 05/24/19 12:36 05/25/19 07:35 Dilaudid Inj Syringe IVP 0.5 mg Q2H PRN Administration Pain 8 to 10 Ondansetron HCl 4 mg 05/24/19 12:36 05/24/19 14:43 Zofran Inj IVP 4 mg Q6HR PRN Administration Nausea / Vomiting Pantoprazole Sodium 40 mg 05/25/19 07:00 05/25/19 06:30 Protonix IVP 40 mg QDAC ORTEGA Administration Sodium Chloride 10 ml 05/24/19 12:36 05/24/19 21:07 Normal Saline Flush 0.9% IVP 10 ml PRN PRN Administration NEEDED PER PROVIDER ORDERS Sodium Chloride 10 ml 05/24/19 17:00 05/25/19 07:39 Normal Saline Flush 0.9% IVP Not Given 0100,0900,1700 ORTEGA Calcium Carbonate [Tums (Calcium Carbonate 500mg)] 500 mg PO PRN PRN 02/08/19 Escitalopram [Lexapro] 20 mg PO DAILY 02/08/19 diphenhydrAMINE [Benadryl] 25 mg PO DAILY PRN 02/08/19 Objective - Vital Signs/Intake & Output Reviewed Vital Signs: Yes Vital Signs: Vital Signs x48h Temp Pulse Resp BP Pulse Ox 05/25/19 08:00 36.7 C 81 18 117/55 L 100 Intake & Output: Intake & Output 05/22/19 05/23/19 05/24/19 05/25/19 23:59 23:59 23:59 23:59 Intake Total 9803.568 7213 Balance 8506.496 1553 - Objective General Appearance: positive: No acute distress, Alert Eyes Bilateral: positive: Normal inspection, PERRL ENT: positive: ENT inspection nml, Pharynx nml Neck: positive: Nml inspection, Thyroid nml, No JVD Respiratory: positive: Chest non-tender, No respiratory distress, Breath sounds nml Cardiovascular: positive: Regular rate & rhythm Abdomen: positive: Non-tender, Nml bowel sounds, No distention Neurologic/Psychiatric: positive: Oriented x3 - Lab Results Fish Bones: 05/25/19 04:56 05/25/19 04:56 Other Labs: Lab Results x24hrs 05/25/19 05/25/19 Range/Units 04:56 04:56 WBC 7.4 (4.8-10.8) x10^3/uL RBC 4.15 L (4.70-6.10) 10^6/uL Hgb 13.1 L (14.0-18.0) g/dL Hct 38.8 L (42.0-52.0) % MCV 93.5 (80.0-94.0) fL MCH 31.6 H (27.0-31.0) pg MCHC 33.8 (32.0-36.0) g/dL RDW 12.6 (12.0-15.0) % Plt Count 262 (130-450) 10^3/uL MPV 9.6 (7.4-11.4) fL Neut # (Auto) 3.8 (1.5-6.6) 10^3/uL Lymph # (Auto) 2.5 (1.5-3.5) 10^3/uL [place] # (Auto) 0.8 (0.0-1.0) 10^3/uL Eos # (Auto) 0.2 (0.0-0.7) 10^3/uL Baso # (Auto) 0.0 (0.0-0.1) 10^3/uL Absolute Nucleated RBC 0.00 x10^3/uL Nucleated RBC % 0.0 /100WBC Sodium 139 (135-145) mmol/L Potassium 3.7 (3.5-5.0) mmol/L Chloride 103 (101-111) mmol/L Carbon Dioxide 29 (21-32) mmol/L Anion Gap 7.0 (6-13) BUN 6 (6-20) mg/dL Creatinine 1.0 (0.6-1.2) mg/dL Estimated GFR (MDRD) 91 (>89) Glucose 99 (70-100) mg/dL Calcium 8.5 (8.5-10.3) mg/dL Magnesium 2.1 (1.7-2.8) mg/dL Total Bilirubin 0.9 (0.2-1.0) mg/dL AST 31 (10-42) IU/L ALT 75 H (10-60) IU/L Alkaline Phosphatase 44 (42-121) IU/L Total Protein 7.0 (6.7-8.2) g/dL Albumin 4.1 (3.2-5.5) g/dL Globulin 2.9 (2.1-4.2) g/dL Albumin/Globulin Ratio 1.4 (1.0-2.2) Sepsis Event Note (H) - Evaluation Current Stage of Sepsis: Ruled out Assessment/Plan - Problem List (1) SBO (small bowel obstruction) Impression: Recurrent symptoms consistent with intermittent small bowel obstruction. Discharge per Medicine service. Follow up with Dr. Walker in 1-2 weeks for outpatient workup.
--- NOTE | 2019-05-25 12:27 | DISCHARGE SUMMARY ---
"Discharge Summary Admit Date: 05/24/19 Discharge Date: 05/25/19 Discharging Provider: SHEBA Bennett Primary Care Provider: [facility]/ Code Status: Attempt Resuscitation Condition at Discharge: Good Discharge Disposition: 01 Home, Self Care - DIAGNOSES Admission Diagnoses: Small bowel obstruction Nausea & vomiting Discharge Diagnoses with Status of Each Condition: Small bowel obstruction-Present on admit, resolved Nausea & vomiting-Present on admit, resolved Abdominal pain-Present on admit, resolved Recurrent intestinal obstruction-Chronic, stable Depression-Chronic, stable Tobacco dependence-Chronic, stable - HPI History of Present Illness: Benjamin Morales is a 23-year-old male with past medical history of recurrent small bowel obstruction, tobacco dependence, and depression. He presented to the ED with complaints of mid-epigastric pain that travels down to belly button which began this morning. The patient denied chest pain, recent illness, shortness of breath, emesis, diarrhea, recent sick contacts, although has ongoing nausea with the abdominal pain. He admitted to having a regular BM on the night of 05/23/2019. He reports that his diet habit is as usual, and consumed raw carrots. He has had no prior abdominal surgery, or any other GI problems. He has not had any outpatient work-ups such as a colonoscopy or EGD. CT of abdomen reveals small bowel obstruction with considerations regarding closed-loop versus open- loop configuration. Lab tests show nothing abnormal. A general surgery consult was made with Dr. Walker who will follow, but does not recommend any surgical interventions at this time. The patient is a full code and was admitted for an observation stay. - CONSULTS | PROCEDURES Consultations: General surgery-Dr. Walker - HOSPITAL COURSE Hospital Course: The patient was admitted to the hospital since imaging showed a small bowel obstruction. He did not require an NG tube or surgical intervention. General surgery, Dr. Walker was consulted, and recommended outpatient workup after this acute problem resolves. The patient had a complete resolution of his symptoms and was tolerating oral intake today. Since the cause is still not determined, the patient was told that he will need further work up outpatient. He was also advised to stop smoking. No narcotics were prescribed since his abdominal pain was resolved. - ALLERGIES Allergies/Adverse Reactions: Allergies Allergy/AdvReac Type Severity Reaction Status Date / Time No Known Drug Allergies Allergy Verified 05/24/19 09:51 - MEDICATIONS Home Medications: Ambulatory Orders Medication Instructions Recorded Confirmed Calcium Carbonate [Tums (Calcium 500 mg PO PRN PRN 02/08/19 05/24/19 Carbonate 500mg)] Escitalopram [Lexapro] 20 mg PO DAILY 02/08/19 05/24/19 diphenhydrAMINE [Benadryl] 25 mg PO DAILY PRN 02/08/19 05/24/19 Docusate Sodium 250Mg Capsule 250 mg PO DAILY #30 capsule 05/25/19 [Colace 250Mg Capsule] - PHYSICAL EXAM AT DISCHARGE General Appearance: positive: No acute distress, Alert Eyes Bilateral: positive: Normal inspection, PERRL ENT: positive: Pharynx nml, No signs of dehydration Neck: positive: Thyroid nml, No JVD, Trachea midline Respiratory: positive: Chest non-tender, No respiratory distress, Breath sounds nml Cardiovascular: positive: Regular rate & rhythm, No murmur, No gallop Peripheral Pulses: positive: 2+ Abdomen: positive: Non-tender, No organomegaly, Nml bowel sounds Back: positive: Nml inspection Skin: positive: Color nml, No rash, Warm, Dry Extremities: positive: Non-tender, Full ROM, Nml appearance, No pedal edema Neurologic/Psychiatric: positive: Oriented x3, CN's nml (2-12), Motor nml, Se nsation nml, Mood/affect nml Reflexes: Bicep (R): 4+, Bicep (L): 4+ - LABS Result Diagrams: 05/25/19 04:56 05/25/19 04:56 - SEPSIS Current Stage of Sepsis: Ruled out - FOLLOW UP Follow Up: Follow up with Dr. Walker in 1-2 weeks for outpatient workup. See your PCP within one week. - TIME SPENT Time Spent in Discharge (Minutes): 45"
[2019-05-25 16:03] VITALS: BP 102/55
== END 2019-05-25 16:25 | disposition home or self-care (01) ==
LOC: ED 09:43 → MS2 12:36
PROVIDERS: ADMIT Nurse Practitioner Gerontology; ATTEND Nurse Practitioner
DX: K56.609 Unspecified intestinal obstruction, unspecified as to partial versus complete obstruction (principal); F32.9 Major depressive disorder, single episode, unspecified; F17.210 Nicotine dependence, cigarettes, uncomplicated
CPT/HCPCS: 36415; 74177; 80053; 81003; 83690; 83735; 85025; 85651; 96361; 96374; 96375; 96376; 99284; 99285; A9270; G0378; J1170; J1200; Q9967; 81001; 84443; 87086

== ENCOUNTER 2020-01-25 03:24 | Emergency (ER) | payer OTHER ==
[2020-01-25 03:52] LABS: BASOPHILS # (AUTO) 0.1 10^3/uL (0.0-0.1); BASOPHILS % (AUTO) 0.6 %; EOSINOPHILS # (AUTO) 0.2 10^3/uL (0.0-0.7); EOSINOPHILS % (AUTO) 2.8 %; HGB - HEMOGLOBIN 14.2 g/dL (14.0-18.0); LYMPHOCYTES # (AUTO) 1.2 10^3/uL (1.5-3.5); LYMPHOCYTES % (AUTO) 15.3 %; MEAN CORPUSCULAR HEMOGLOBIN 30.9 pg (27.0-31.0); MEAN CORPUSCULAR HGB CONC 33.9 g/dL (32.0-36.0); MEAN CORPUSCULAR VOLUME 91.3 fL (80.0-94.0); MEAN PLATELET VOLUME 9.6 fL (7.4-11.4); MONOCYTES # (AUTO) 0.8 10^3/uL (0.0-1.0); MONOCYTES % (AUTO) 9.3 %; NEUTROPHILS # (AUTO) 5.8 10^3/uL (1.5-6.6); NEUTROPHILS % (AUTO) 71.6 %; PLT - PLATELET COUNT 275 10^3/uL (130-450); RED BLOOD COUNT 4.59 10^6/uL (4.70-6.10); RED CELL DISTRIBUTION WIDTH 11.9 % (12.0-15.0); WHITE BLOOD COUNT 8.1 x10^3/uL (4.8-10.8)
[2020-01-25 04:03] LABS: BILIRUBIN,URINE NEGATIVE (NEGATIVE); GLUCOSE, URINE (UA) NEGATIVE (NEGATIVE); KETONES,URINE (UA) NEGATIVE (NEGATIVE); LEUKOCYTE ESTERASE, URINE NEGATIVE (NEGATIVE); NITRITE,URINE NEGATIVE (NEGATIVE); OCCULT BLOOD,URINE NEGATIVE (NEGATIVE); PH,URINE 5.5 PH (5.0-7.5); PROTEIN,URINE NEGATIVE (NEGATIVE); UROBILINOGEN,URINE 0.2 (NORMAL) E.U./dL (NORMAL)
[2020-01-25 04:04] LABS: ALBUMIN 4.7 g/dL (3.2-5.5); ALBUMIN/GLOBULIN RATIO 1.3 (1.0-2.2); BILIRUBIN,TOTAL 0.9 mg/dL (0.2-1.0); CALCIUM 9.2 mg/dL (8.5-10.3); CLARITY,URINE CLEAR (CLEAR); TOTAL PROTEIN 8.3 g/dL (6.7-8.2)
[2020-01-25] MEDS ORDERED: ACETAMINOPHEN 325 MG TABLET PO STA (04:14)
[2020-01-25 06:42] VITALS: BP 133/84
--- NOTE | 2020-01-25 09:18 | ED Physician Documentation ---
PD HPI ABD PAIN - Stated complaint Stated Complaint: ABD PX - Chief complaint Chief Complaint: Abd Pain - History obtained from History obtained from: Patient - Additional information Additional information: 24-year-old man with no past medical history, no known drug allergies presents with abdominal pain starting last night around 2 AM. Epigastric nonradiating aching quality associated with body aches, subjective fever chills and dry cough as well as sinus congestion. Patient unaware if he has any Covid exposures. Denies urinary symptoms nausea vomiting diarrhea or back pain. Review of Systems Ten Systems: 10 systems reviewed and negative Constitutional: reports: Fever, Chills, Myalgias GI: reports: Abdominal Pain : denies: Dysuria PD PAST MEDICAL HISTORY - Past Medical History Past Medical History: Yes Cardiovascular: None Respiratory: None Neuro: None Endocrine/Autoimmune: None GI: Other : None Psych: Depression Musculoskeletal: None Derm: None - Past Surgical History Past Surgical History: No General: Other - Present Medications Home Medications: Ambulatory Orders Medication Instructions Recorded Confirmed Calcium Carbonate [Tums (Calcium 500 mg PO PRN PRN 02/08/19 05/24/19 Carbonate 500mg)] Escitalopram [Lexapro] 20 mg PO DAILY 02/08/19 05/24/19 diphenhydrAMINE [Benadryl] 25 mg PO DAILY PRN 02/08/19 05/24/19 Docusate Sodium 250Mg Capsule 250 mg PO DAILY #30 capsule 05/25/19 [Colace 250Mg Capsule] - Allergies Allergies/Adverse Reactions: Allergies Allergy/AdvReac Type Severity Reaction Status Date / Time No Known Drug Allergies Allergy Verified 01/25/20 03:38 - Social History Does the pt smoke?: Yes Smoking Status: Current every day smoker Does the pt drink ETOH?: Yes Does the pt have substance abuse?: No - Immunizations Immunizations are current?: Yes - POLST Patient has POLST: No POLST Status: Full Code PD ED PE NORMAL - Vitals Vital signs reviewed: Yes - General General: Alert and oriented X 3 - HEENT HEENT: Atraumatic - Neck Neck: Supple, no meningeal sign - Cardiac Cardiac: RRR - Respiratory Respiratory: No respiratory distress - Abdomen Abdomen: Normal bowel sounds, Non tender, Non distended, Other (epigastric discomfort to palpation) - Male Male : Deferred - Rectal Rectal: Deferred - Back Back: No CVA TTP - Derm Derm: Normal color - Extremities Extremities: No deformity - Neuro Neuro: Alert and oriented X 3 - Psych Psych: Normal mood, Normal affect Results - Vitals Vitals: Vital Signs - 24 hr 01/25/20 01/25/20 03:28 06:35 Temperature 37.1 C Heart Rate 97 90 Respiratory 18 16 Rate Blood Pressure 121/63 133/84 H O2 Saturation 96 99 Oxygen O2 Source Room air - Labs Labs: Laboratory Tests 01/25/20 01/25/20 01/25/20 03:47 03:47 03:47 WBC 8.1 RBC 4.59 L Hgb 14.2 Hct 41.9 L MCV 91.3 MCH 30.9 MCHC 33.9 RDW 11.9 L Plt Count 275 MPV 9.6 Neut # (Auto) 5.8 Lymph # (Auto) 1.2 L [place] # (Auto) 0.8 Eos # (Auto) 0.2 Baso # (Auto) 0.1 Absolute Nucleated RBC 0.00 Nucleated RBC % 0.0 Sodium 137 Potassium 4.1 Chloride 104 Carbon Dioxide 26 Anion Gap 7.0 BUN 17 Creatinine 1.0 Estimated GFR (MDRD) 90 Glucose 109 H Calcium 9.2 Total Bilirubin 0.9 AST 89 H ALT 86 H Alkaline Phosphatase 56 Total Protein 8.3 H Albumin 4.7 Globulin 3.6 Albumin/Globulin Ratio 1.3 Lipase 25 Urine Color YELLOW Urine Clarity CLEAR Urine pH 5.5 Ur Specific [place] 1.025 Urine Protein NEGATIVE Urine Glucose (UA) NEGATIVE Urine Ketones NEGATIVE Urine Occult Blood NEGATIVE Urine Nitrite NEGATIVE Urine Bilirubin NEGATIVE Urine Urobilinogen 0.2 (NORMAL) Ur Leukocyte Esterase NEGATIVE Ur Microscopic Review NOT INDICATED Urine Culture Comments NOT INDICATED SARS-CoV-2 (PCR) 01/25/20 04:45 WBC RBC Hgb Hct MCV MCH MCHC RDW Plt Count MPV Neut # (Auto) Lymph # (Auto) [place] # (Auto) Eos # (Auto) Baso # (Auto) Absolute Nucleated RBC Nucleated RBC % Sodium Potassium Chloride Carbon Dioxide Anion Gap BUN Creatinine Estimated GFR (MDRD) Glucose Calcium Total Bilirubin AST ALT Alkaline Phosphatase Total Protein Albumin Globulin Albumin/Globulin Ratio Lipase Urine Color Urine Clarity Urine pH Ur Specific [place] Urine Protein Urine Glucose (UA) Urine Ketones Urine Occult Blood Urine Nitrite Urine Bilirubin Urine Urobilinogen Ur Leukocyte Esterase Ur Microscopic Review Urine Culture Comments SARS-CoV-2 (PCR) NOT DETECTED PD MEDICAL DECISION MAKING - ED course Complexity details: reviewed results, re-evaluated patient, d/w patient ED course: Man presents with epigastric abdominal pain and URI symptoms. Covid negative, work-up indicating transaminitis and lymphopenia suggestive of viral etiology. Discussed with patient. Advised to quarantine as possible COVID-19 exposure despite negative test. Educated on symptomatic care. Advised to follow-up with primary doctor. Strict return precautions given Departure - Departure Disposition: 01 Home, Self Care Clinical Impression: Diarrhea, Abdominal pain Condition: Stable Instructions: Abdominal Pain Comments: You have been seen in the emergency department for abdominal pain. Your lab work is showing a viral appearing syndrome, so it is likely that you have a viral stomach bug. Please follow-up with your primary doctor. Return to the ED for any worsening of symptoms. Make sure that you hydrate and rest as well as isolating from anyone that you might get sick because you are contagious. Discharge Date/Time: 01/25/20 06:35
== END 2020-01-25 06:35 | disposition home or self-care (01) ==
LOC: ED 03:24
DX: R19.7 Diarrhea, unspecified (principal); R10.13 Epigastric pain; B34.9 Viral infection, unspecified; Z20.828 Contact with and (suspected) exposure to other viral communicable diseases; F17.200 Nicotine dependence, unspecified, uncomplicated
CPT/HCPCS: 36415; 80053; 81003; 83690; 85025; 87635; 99283; 99284; A9270; 81001; 87086

== ENCOUNTER 2020-11-25 03:52 | Inpatient (IN) | payer OTHER ==
--- NOTE | 2020-11-25 04:11 | ED Physician Documentation ---
PD HPI ABD PAIN - Stated complaint Stated Complaint: NO BOWEL MOVEMENT - Chief complaint Chief Complaint: Abd Pain - History obtained from History obtained from: Patient - History of Present Illness Timing - onset: Last night Timing - duration: Hours Timing - details: Abrupt onset, Still present Quality: Cramping, Aching, Fullness/distended, Pain Location: All over / everywhere Radiation: No: Chest, Lower back Improved by: No: Vomiting Worsened by: Moving, Palpation. No: Breathing Associated symptoms: Nausea, Vomiting (couple of times), Loss of appetite. No: Fever, Diarrhea, Constipation Similar symptoms before: Diagnosis (He has had 3 similar episodes. 1 as a teenager he said and then 2 in the past 3 years here and would be. Treated medically without needing surgery. No colonoscopy follow-up, due to COVID.) Review of Systems Constitutional: denies: Fever, Chills Nose: denies: Rhinorrhea / runny nose, Congestion Throat: denies: Sore throat Cardiac: denies: Chest pain / pressure Respiratory: denies: Cough GI: reports: Abdominal Pain, Abdominal Swelling (just overnight), Nausea, Vomiting. denies: Constipation, Diarrhea : denies: Dysuria Musculoskeletal: denies: Neck pain, Back pain PD PAST MEDICAL HISTORY - Past Medical History Past Medical History: Yes Cardiovascular: None Respiratory: None Neuro: None Endocrine/Autoimmune: None GI: Other (Prior episodes SBO) : None Psych: Depression Musculoskeletal: None Derm: None Other Past Medical History: SBO - Past Surgical History Past Surgical History: No General: Other (Denies prior abdominal surgery.) - Present Medications Home Medications: Ambulatory Orders Medication Instructions Recorded Confirmed hydrOXYzine HCL [Hydroxyzine HCl] 25 mg PO DAILY 11/25/20 11/25/20 - Allergies Allergies/Adverse Reactions: Allergies Allergy/AdvReac Type Severity Reaction Status Date / Time No Known Drug Allergies Allergy Verified 11/25/20 04:02 - Social History Does the pt smoke?: Yes Smoking Status: Current every day smoker Does the pt drink ETOH?: Yes Does the pt have substance abuse?: No - Family History Family history: reports: Other (No family history of Crohn's or colitis.) - Immunizations Immunizations are current?: Yes - POLST Patient has POLST: No POLST Status: Full Code PD ED PE NORMAL - Vitals Vital signs reviewed: Yes - General General: Alert and oriented X 3, No acute distress, Well developed/nourished - HEENT HEENT: Pharynx benign - Neck Neck: Supple, no meningeal sign, No adenopathy - Cardiac Cardiac: RRR, No murmur - Respiratory Respiratory: Clear bilaterally - Abdomen Abdomen: No organomegaly. No: Normal bowel sounds (Hyperactive bowel sounds diffusely with a general abdominal distention. Tenderness mainly mid to left abdomen.) - Male Male : Deferred - Rectal Rectal: Deferred - Back Back: No CVA TTP - Derm Derm: Normal color, Warm and dry - Extremities Extremities: Normal ROM s pain - Neuro Neuro: Alert and oriented X 3, No motor deficit, Normal speech Eye Opening: Spontaneous Motor: Obeys Commands Verbal: Oriented GCS Score: 15 Results - Vitals Vitals: Vital Signs - 24 hr 11/25/20 11/25/20 11/25/20 04:02 04:06 06:06 Temperature 37 C 37 C Heart Rate 79 79 71 Respiratory 16 16 16 Rate Blood Pressure 128/90 H 128/90 H 118/79 O2 Saturation 98 98 99 Oxygen O2 Source Room air - Labs Labs: Laboratory Tests 11/25/20 11/25/20 11/25/20 04:11 04:11 04:25 WBC 7.5 RBC 4.56 L Hgb 14.1 Hct 41.5 L MCV 91.0 MCH 30.9 MCHC 34.0 RDW 12.2 Plt Count 265 MPV 9.8 Neut # (Auto) 4.0 Lymph # (Auto) 2.4 [place] # (Auto) 0.8 Eos # (Auto) 0.2 Baso # (Auto) 0.1 Absolute Nucleated RBC 0.00 Nucleated RBC % 0.0 Sodium 142 Potassium 4.0 Chloride 102 Carbon Dioxide 30 Anion Gap 10.0 BUN 16 Creatinine 1.1 Estimated GFR (MDRD) 80 L Glucose 105 H Calcium 9.4 Total Bilirubin 0.6 AST 22 ALT 33 Alkaline Phosphatase 52 Total Protein 8.0 Albumin 4.6 Globulin 3.4 Albumin/Globulin Ratio 1.4 Lipase 99 H Urine Color Urine Clarity Urine pH Ur Specific [place] Urine Protein Urine Glucose (UA) Urine Ketones Urine Occult Blood Urine Nitrite Urine Bilirubin Urine Urobilinogen Ur Leukocyte Esterase Ur Microscopic Review Urine Culture Comments Nasal Adenovirus (PCR) NOT DETECTED Nasal B. parapertussis DNA (PCR) NOT DETECTED Nasal Coronavir 229E PCR NOT DETECTED Nasal Coronavir HKU1 PCR NOT DETECTED Nasal Coronavir NL63 PCR NOT DETECTED Nasal Coronavir OC43 PCR NOT DETECTED Nasal Enterovir/Rhinovir PCR NOT DETECTED Nasal Influenza B PCR NOT DETECTED Nasal Influenza A PCR NOT DETECTED Nasal Parainfluen 1 PCR NOT DETECTED Nasal Parainfluen 2 PCR NOT DETECTED Nasal Parainfluen 3 PCR NOT DETECTED Nasal Parainfluen 4 PCR NOT DETECTED Nasal RSV (PCR) NOT DETECTED Nasal B.pertussis DNA PCR NOT DETECTED Nasal C.pneumoniae (PCR) NOT DETECTED Noah Human Metapneumo PCR NOT DETECTED Nasal M.pneumoniae (PCR) NOT DETECTED Nasal SARS-CoV-2 (PCR) NOT DETECTED 11/25/20 06:57 WBC RBC Hgb Hct MCV MCH MCHC RDW Plt Count MPV Neut # (Auto) Lymph # (Auto) [place] # (Auto) Eos # (Auto) Baso # (Auto) Absolute Nucleated RBC Nucleated RBC % Sodium Potassium Chloride Carbon Dioxide Anion Gap BUN Creatinine Estimated GFR (MDRD) Glucose Calcium Total Bilirubin AST ALT Alkaline Phosphatase Total Protein Albumin Globulin Albumin/Globulin Ratio Lipase Urine Color YELLOW Urine Clarity CLEAR Urine pH 6.5 Ur Specific Hard[place] <=1.005 Urine Protein NEGATIVE Urine Glucose (UA) NEGATIVE Urine Ketones NEGATIVE Urine Occult Blood NEGATIVE Urine Nitrite NEGATIVE Urine Bilirubin NEGATIVE Urine Urobilinogen 0.2 (NORMAL) Ur Leukocyte Esterase NEGATIVE Ur Microscopic Review NOT INDICATED Urine Culture Comments NOT INDICATED Nasal Adenovirus (PCR) Nasal B. parapertussis DNA (PCR) Nasal Coronavir 229E PCR Nasal Coronavir HKU1 PCR Nasal Coronavir NL63 PCR Nasal Coronavir OC43 PCR Nasal Enterovir/Rhinovir PCR Nasal Influenza B PCR Nasal Influenza A PCR Nasal Parainfluen 1 PCR Nasal Parainfluen 2 PCR Nasal Parainfluen 3 PCR Nasal Parainfluen 4 PCR Nasal RSV (PCR) Nasal B.pertussis DNA PCR Nasal C.pneumoniae (PCR) Noah Human Metapneumo PCR Nasal M.pneumoniae (PCR) Nasal SARS-CoV-2 (PCR) PD MEDICAL DECISION MAKING - ED course Complexity details: reviewed results, re-evaluated patient (improved symptoms.), considered differential (Clinically seems likely recurrent bowel obstruction. Will get labs and CT scan. He is given IV fluids and medication for pain and nausea.), d/w patient, d/w program consultant Departure - Departure Disposition: ED Place in Observation Clinical Impression: Small bowel obstruction, Abdominal pain Condition: Stable
[2020-11-25] MEDS ORDERED: HYDROmorphone 1 MG/ML CARPUJECT IVP STA ×2 (04:22→06:46)
[2020-11-25] MEDS ORDERED: KETOROLAC 15 MG/ML VIAL IVP STA (04:22)
[2020-11-25] MEDS ORDERED: SODIUM CHLORIDE 0.9% 1,000 ML IV STA ×2 (04:22→06:46)
[2020-11-25] MEDS ORDERED: ONDANSETRON 4 MG/2 ML VIAL IVP STA (04:22)
[2020-11-25 04:26] LABS: BASOPHILS # (AUTO) 0.1 10^3/uL (0.0-0.1); BASOPHILS % (AUTO) 0.7 %; EOSINOPHILS # (AUTO) 0.2 10^3/uL (0.0-0.7); EOSINOPHILS % (AUTO) 2.9 %; HCT - HEMATOCRIT 41.5 % (42.0-52.0); HGB - HEMOGLOBIN 14.1 g/dL (14.0-18.0); LYMPHOCYTES # (AUTO) 2.4 10^3/uL (1.5-3.5); LYMPHOCYTES % (AUTO) 32.4 %; MEAN CORPUSCULAR HEMOGLOBIN 30.9 pg (27.0-31.0); MEAN PLATELET VOLUME 9.8 fL (7.4-11.4); MONOCYTES # (AUTO) 0.8 10^3/uL (0.0-1.0); MONOCYTES % (AUTO) 10.7 %; PLT - PLATELET COUNT 265 10^3/uL (130-450); RED BLOOD COUNT 4.56 10^6/uL (4.70-6.10); RED CELL DISTRIBUTION WIDTH 12.2 % (12.0-15.0); WHITE BLOOD COUNT 7.5 x10^3/uL (4.8-10.8)
[2020-11-25 04:36] LABS: ALBUMIN 4.6 g/dL (3.2-5.5); ALBUMIN/GLOBULIN RATIO 1.4 (1.0-2.2); BILIRUBIN,TOTAL 0.6 mg/dL (0.2-1.0); CALCIUM 9.4 mg/dL (8.5-10.3); CREATININE 1.1 mg/dL (0.6-1.2)
[2020-11-25] MEDS ORDERED: IOPAMIDOL-300 100 ML VIAL ONE (04:42)
[2020-11-25] MEDS ORDERED: IOVERSOL 320 50 ML VIAL ONE (04:42)
[2020-11-25 05:26] LABS: B. PARAPERTUSSIS- RESP PCR PAN NOT DETECTED; B. PERTUSSIS- RESP PCR PANEL NOT DETECTED; C. PNEUMONIAE- RESP PCR PANEL NOT DETECTED; CORONAVIRUS 229E-RESP PCR NOT DETECTED; CORONAVIRUS HKU1-RESP PCR NOT DETECTED; CORONAVIRUS NL63-RESP PCR NOT DETECTED; CORONAVIRUS OC43-RESP PCR NOT DETECTED; HUMAN METAPNEUMOVIRUS NOT DETECTED; INFLUENZA A- RESP PCR PANEL NOT DETECTED; INFLUENZA B - RESP PCR PANEL NOT DETECTED; M. PNEUMONIAE- RESP PCR PANEL NOT DETECTED; PARAINFLUENZA VIRUS 1 NOT DETECTED; PARAINFLUENZA VIRUS 2 NOT DETECTED; PARAINFLUENZA VIRUS 3 NOT DETECTED; PARAINFLUENZA VIRUS 4 NOT DETECTED; RHINOVIRUS/ENTEROVIRUS NOT DETECTED; RSV- RESP PCR PANEL NOT DETECTED; SARS-CoV-2 -RESP PCR PANEL NOT DETECTED
[2020-11-25] MEDS ORDERED: IOPAMIDOL-300 100 ML VIAL IVP ONE (05:52)
[2020-11-25] MEDS ORDERED: IOVERSOL 320 50 ML VIAL PO ONE (05:52)
[2020-11-25] MEDS ORDERED: MORPHINE 2 MG/ML CARPUJECT IVP PRN (07:01)
[2020-11-25] MEDS ORDERED: ONDANSETRON 4 MG/2 ML VIAL IVP PRN (07:01)
[2020-11-25] MEDS ORDERED: PROMETHAZINE 25 MG/1 ML VIAL IM PRN (07:01)
[2020-11-25] MEDS ORDERED: SODIUM CHLORIDE FLUSH 0.9% 10 ML SYRINGE IVP PRN (07:01)
[2020-11-25 07:06] LABS: BILIRUBIN,URINE NEGATIVE (NEGATIVE); GLUCOSE, URINE (UA) NEGATIVE (NEGATIVE); KETONES,URINE (UA) NEGATIVE (NEGATIVE); LEUKOCYTE ESTERASE, URINE NEGATIVE (NEGATIVE); NITRITE,URINE NEGATIVE (NEGATIVE); OCCULT BLOOD,URINE NEGATIVE (NEGATIVE); PH,URINE 6.5 PH (5.0-7.5); PROTEIN,URINE NEGATIVE (NEGATIVE); UROBILINOGEN,URINE 0.2 (NORMAL) E.U./dL (NORMAL)
[2020-11-25 07:15] LABS: CLARITY,URINE CLEAR (CLEAR)
--- NOTE | 2020-11-25 07:55 | SURGERY HX AND PHYSICAL(T) ---
Surgical History & Physical - Chief Complaint/HPI Chief Complaint: abdominal pain History of Present Illness: 25 yo male with a hx of episodes of SBO in the past, most recently in May of 2019, had onset of cramping abdominal pain at 2:30 this morning. Vomited twice. Had CT done after some oral contrast showing dilated loops of SB. No previous abdominal surgery. No definite family hx of IBD. - PMH/PSH/Social Hx Does the pt have a hx of MRSA?: No Neurological History: None Cardiovascular: None Respiratory: None Skin: None Endocrine/Autoimmune: None Gastrointestinal: Other (Prior episodes SBO) Urinary: None Musculoskeletal: None Blood Disorders: None Psychiatric: Depression PMH Other: SBO General: Other (Denies prior abdominal surgery.) Smoking Status: Current every day smoker Does the pt drink ETOH?: Yes Frequency: Occasional Does the pt have substance abuse?: No - Home Meds and Allergies Home Medications: hydrOXYzine HCL [Hydroxyzine HCl] 25 mg PO DAILY 11/25/20 Allergies/Adverse Reactions: Allergies Allergy/AdvReac Type Severity Reaction Status Date / Time No Known Drug Allergies Allergy Verified 11/25/20 04:02 - Review of Systems Constitutional: No: Fatigue Respiratory: No: Shortness of breath, Cough Gastrointestinal: Nausea, Vomiting, Abdominal pain, Constipation - Vital Signs Heart Rate: 71 Blood Pressure: 118/79 Temperature: 37 C Respiratory Rate: 16 O2 Saturation: 99 Weight (kg): 68.039 kg Height: 1.65 m - Physical Exam General Appearance: positive: No acute distress Eyes Bilatera: positive: Normal inspection ENT: positive: ENT inspection nml Neck: positive: Nml inspection Respiratory: positive: No respiratory distress Cardiovascular: positive: Regular rate & rhythm Peripheral Pulses: positive: 2+ Abdomen: positive: Non-tender, No organomegaly, No distention. negative: Tenderness, Guarding, Rebound Extremities: positive: Nml appearance Neurologic/Psychiatric: positive: Oriented x3 - Patient Review Patient Review: Problems were reviewed with the patient during this visit. Medications were reviewed with the patient during this visit. Allergies were reviewed this patient during this visit. Pertinent Tests Reviewed: All pertitent test for this patient were reviewed. - Assessment & Plan Assessment and Plan: Partial SBO Depression Constipation Plan: Admit- NPO- NG to suction- IV fluids GG SBFT tomorrow if not resolved
[2020-11-25] MEDS: LACTATED RINGERS 1,000 ML IV SCH ×2 (08:28→17:09)
[2020-11-25] MEDS ORDERED: PROCHLORPERAZINE 10 MG/2 ML VIAL IVP PRN (08:43)
--- NOTE | 2020-11-25 08:46 | HISTORY & PHYSICAL EXAMINATION ---
Chief Complaint - Chief Complaint Chief Complaint: Abdominal pain and nausea History of Present Illness - Admitted From Admitted From:: Home - History Obtained From Records Reviewed: Previous Admissions History obtained from: Patient Exam Limitations: None - History of Present Illness HPI Comment/Other: Pleasant 25 year old male presents today with reports of sharp abdominal pain that began 11/24 at 0200 with associated nausea. Pain began in upper mid gastric area that radiates to left upper quadrant. Last bowel movement was on 11/23 and reported as soft, formed, and brown. Denies vomiting due seeking medical care early. Denies melena. Reports a regular diet but limits garlic, onions, greasy, or spicy foods due to subsequent diarrhea which averages once weekly. Last meal was dinner on 11/24 that was his regular diet. Denies recent illness or begin in contact with anyone who is known to be ill. Reports recurring small bowel obstructions since 2009. The next subsequent episode was in 2017 and he averages one episode a year. Denies pervious gastric surgeries due to past occurrences resolving spontaneously. Reports scheduled colonoscopy outpatient that was cancelled due COVID. Patient was informed that the reoccurrence is suspected to be related to "stomach/intestinal chemical scarring" that resulted from "being young and stupid" and taking "too many pills" coricidin. 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 Dad has GERD. Sisters x2 and Brothers x3 healthy.), Father: Alive and Well, Sister: Alive and Well, Brother: Alive and Well Family History Comment/Other: pt report his parants both are health. His si blings are also healthy. Living arrangement: At home Living Situation: With spouse/s.o. Social History Notes: pt is from [place] and lives here with his . Reports working in the [employer] in [email or web address]. he denies currently smoking, quit 2019 with a 5 pack years. Denies alcohol and drug issue. - Substance History Use: Uses substance without health or social issues: NONE Dependence: Experiences withdrawal or developed tolerances: NONE - POLST Patient has POLST: No POLST Status: Full Code Meds/Allgy - Home Medications Home Medications: Ambulatory Orders Medication Instructions Recorded Confirmed hydrOXYzine HCL [Hydroxyzine HCl] 25 mg PO DAILY 11/25/20 11/25/20 - Allergies Allergies/Adverse Reactions: Allergies Allergy/AdvReac Type Severity Reaction Status Date / Time No Known Drug Allergies Allergy Verified 11/25/20 04:02 Review of Systems - Gastrointestinal Gastrointestinal: reports: Abdominal pain, Nausea, Bloating - All Other Systems All Other Systems: reports: Reviewed and negative Prior Level of Functionality: independent Exam - Vital Signs Reviewed Vital Signs: Yes Vital Signs: Vital Signs x48h Temp Pulse Resp BP Pulse Ox 11/25/20 08:03 37 C 71 16 118/79 99 11/25/20 06:06 71 16 118/79 99 11/25/20 04:06 37 C 79 16 128/90 H 98 11/25/20 04:02 37 C 79 16 128/90 H 98 - Physical Exam General Appearance: positive: Mild distress (from nausea and abdominal pain) Eyes Bilateral: positive: Normal inspection, EOMI ENT: positive: ENT inspection nml, Pharynx nml, No signs of dehydration Neck: positive: Nml inspection, No JVD, Trachea midline Respiratory: positive: Chest non-tender, No respiratory distress, Breath sounds nml Cardiovascular: positive: Regular rate & rhythm, No murmur, No gallop Peripheral Pulses: positive: 2+ Abdomen: positive: Tenderness (Abd. distention, active bowel sounds to all four quadrants. No rebound tenderness.) Skin: positive: Color nml, No rash, Warm, Dry Extremities: positive: Non-tender, Full ROM, Nml appearance, No pedal edema Neurologic/Psychiatric: positive: Oriented x3, Motor nml, Sensation nml, Mood/affect nml Conclusion/Plan - Problem List (1) SBO (small bowel obstruction) Conclusion/Plan: SBO as supported by imaging and recurring complaints of abd. Similar pain with N/V experienced during previous SBO admissions. Plan: Surgical consult completed with request for NG tube placement. Continue with bowel rest and IV hydration with LR at 100ml/hr. Associated nausea controlled with IV Zofran and Compazine. Continue to monitor BMP and replace electrolyses as needed. Abd. pain controlled with IV Morphine. If pain persists or increases, consider add Dilaudid If pain worsen, WBCs elevated, or patient develops a fever, obtain repeat CT to rule out perforation. (2) Acute anxiety Conclusion/Plan: History of anxiety takes hydroxyzine 25mg PO daily prn. Plan: Continue to monitor for anxiety and resume Hydroxyzine when reconciled. - Lab Results Fish Bones: 11/25/20 04:11 11/25/20 04:11 - Diagnostic Imaging Results Diagnostic Imaging Results: positive: Prelim report reviewed Diagnostic Imaging Results Comments: Ct of Abd./ Pelvis preliminary report showed partial small bowel obstruction with transition pain in the right mid abdomen. Thickening of small bowel at the transition point may indicate enteritis.No bowel perforation. Core Measures - DVT/VTE - Prophylaxis VTE/DVT Device ordered at admit?: Yes VTE/DVT Prophylaxis med ordered at admit?: Yes
[2020-11-25] MEDS: SODIUM CHLORIDE FLUSH 0.9% 10 ML SYRINGE IVP SCH ×3 (08:47→23:53)
[2020-11-25] MEDS: ENOXAPARIN 40 MG/0.4 ML SYRINGE SUBQ SCH (08:47)
--- NOTE | 2020-11-25 09:47 | XRAY Report ---
PROCEDURE: Chest for Line Placement INDICATIONS: ng tube placed TECHNIQUE: One view of the chest was acquired. COMPARISON: None FINDINGS: Surgical changes and devices: NGT is present, tip of which is in the gastric lumen. Lungs and pleura: No pleural effusions or pneumothorax. Lungs are clear. Mediastinum: Mediastinal contours appear normal. Heart size is normal. Bones and chest wall: No suspicious bony lesions. Overlying soft tissues appear unremarkable. IMPRESSION: No acute process. Reviewed by: Fritz Figueroa MD on 11/25/2020 9:46 AM PDT Approved by: Fritz Figueroa MD on 11/25/2020 9:46 AM PDT Station ID: [id number]
--- NOTE | 2020-11-25 10:19 | PHARMACY PROGRESS NOTE ---
- Best Possible Medication History Admit Date and Time: 11/25/20 0701 Processed by: Nursing Medication History completed: Yes (MED REC COMPLETED BY NURSING) As the person ultimately responsible for medication therapy, providers are able to order a medication from an existing home medication list in [facility] via the "Reconcile Routine" prior to Confirmation of that medication by business support manager. Such practice is discouraged except when the physician, in their clinical judgment, deems that a medical need exists for a medication without regard to previous use.
--- NOTE | 2020-11-25 10:20 | CT Report ---
PROCEDURE: Abdomen/Pelvis W INDICATIONS: Abdominal pain, acute, nonlocalized CONTRAST: IV CONTRAST: Isovue 300 ml: 100 PO CONTRAST: Optiray 320 ml750 TECHNIQUE: After the administration of intravenous and oral contrast, 5 mm thick sections acquired from the diap hragms to the symphysis. 5 mm thick coronal and sagittal reformats were acquired. For radiation dos e reduction, the following was used: automated exposure control, adjustment of mA and/or kV accordin g to patient size. COMPARISON: CT abdomen and pelvis with contrast, 05/24/2019 and 02/06 2/290. FINDINGS: Image quality: Excellent. ABDOMEN: Lung bases: Mild bibasilar atelectasis. Heart size is normal. Solid organs: Liver and spleen are normal in size and enhancement. Hepatic steatosis. Gallbladder i s normal. Biliary system is non dilated. Pancreas enhances normally. No adrenal nodules. Kidneys demonstrate normal size and enhancement, without hydronephrosis. Peritoneum and bowel: Stomach is mildly distended with an air-fluid level. Proximal small bowel loop s are mildly dilated measuring up to 3.3 cm in diameter. There are multiple air-fluid levels in proxi mal small bowel. There is a transitional point in the right lower quadrant with decompressed distal s mall bowel loops. The small bowel in the area versus mildly thickened although in the absence of oral contrast in the area with appearance could still be caused by peristalsis or artifact from collapsed small bowel. The CT findings are consistent with small bowel pressure. No free fluid or air. Nodes and vessels: No retroperitoneal adenopathy by size criteria. Slightly prominent mesenteric ly mph nodes are noted in the right lower quadrant measuring up to 1 cm, most likely reactive. Aorta and inferior vena cava are normal in size. Miscellaneous: No ventral hernias. PELVIS: Genitourinary: Bladder wall thickness is normal. Miscellaneous: No inguinal hernias or adenopathy. Bones: No suspicious bony lesions. No vertebral body compression fractures. IMPRESSION: 1. Small bowel obstruction. 2. Borderline enlarged mesenteric lymph nodes in the right lower quadrant, most likely reactive. No significant discrepancy with the preliminary interpretation. Reviewed by: Karli Ramos MD on 11/25/2020 10:18 AM PDT Approved by: Karli Ramos MD on 11/25/2020 10:18 AM PDT Station ID: [id number]
--- NOTE | 2020-11-25 16:48 | XRAY Report ---
PROCEDURE: Abdomen 2 View X-Ray INDICATIONS: SBO follow up TECHNIQUE: 2 views of the abdomen were acquired. COMPARISON: CT scan 11/25/2020. FINDINGS: Surgical changes and devices: None. Bowel: No pneumoperitoneum. Mildly dilated small bowel noted in the mid abdomen which contain oral c ontrast material. Scattered air-fluid levels are noted. Moderate fecal loading noted throughout the c olon. Soft tissues: No masses; visualized solid organ contours appear normal in size. No suspicious abdom inal calcifications. Bones: No suspicious bony abnormalities. IMPRESSION: Persistent dilated small bowel compatible with small bowel obstruction. Reviewed by: Mabel Wilcox MD, PhD on 11/25/2020 4:47 PM PDT Approved by: Mabel Wilcox MD, PhD on 11/25/2020 4:47 PM PDT Station ID: [id number]
[2020-11-26] MEDS: LACTATED RINGERS 1,000 ML IV SCH (02:47)
[2020-11-26 08:32] LABS: CALCIUM 9.2 mg/dL (8.5-10.3); POTASSIUM 3.9 mmol/L (3.5-5.0)
[2020-11-26] MEDS: ENOXAPARIN 40 MG/0.4 ML SYRINGE SUBQ SCH (08:33)
[2020-11-26] MEDS: SODIUM CHLORIDE FLUSH 0.9% 10 ML SYRINGE IVP SCH (08:33)
--- NOTE | 2020-11-26 09:33 | PROVIDER PROGRESS NOTE ---
Subjective - General Admit Date: 11/25/20 - Review of Systems General: positive: No symptoms Gastrointestinal: negative: Nausea, Vomiting, Abdominal pain All Other Systems: positive: Reviewed and negative Objective - Patient Data Reviewed Vital Signs: Yes Weight: Weight 11/24/20 11/25/20 11/26/20 23:59 23:59 23:59 Weight (kg) 68.039 kg Intake & Output: Intake and Output Totals x24h 11/24/20 11/25/20 11/26/20 23:59 23:59 23:59 Intake Total 2910.333 963.333 Output Total 2050 1100 Balance 860.333 -136.667 - Lab Results Lab Results: 11/25/20 04:11 11/26/20 08:00 Other Lab Results: Lab Results x24hrs 11/26/20 Range/Units 08:00 Sodium 140 (135-145) mmol/L Potassium 3.9 (3.5-5.0) mmol/L Chloride 102 (101-111) mmol/L Carbon Dioxide 30 (21-32) mmol/L Anion Gap 8.0 (6-13) BUN 8 (6-20) mg/dL Creatinine 1.0 (0.6-1.2) mg/dL Estimated GFR (MDRD) 90 (>89) Glucose 99 (70-100) mg/dL Calcium 9.2 (8.5-10.3) mg/dL Magnesium 2.0 (1.7-2.8) mg/dL - Imaging Results Radiology Imaging: positive: Final report received - Current Medications Current Medications: Current Medications Generic Name Dose Route Start Last Admin Trade Name Freq PRN Reason Stop Dose Admin Enoxaparin Sodium 40 mg 11/25/20 09:00 11/26/20 08:33 Enoxaparin 40 Mg/0.4 Ml Syringe SUBQ Not Given DAILY ORTEGA Lactated Ringer's 1,000 mls @ 100 mls/hr 11/25/20 08:00 11/26/20 02:47 Lr IV 100 mls/hr .Q10H ORTEGA Administration Morphine Sulfate 2 mg 11/25/20 07:01 11/25/20 12:23 Morphine 2 Mg/Ml Carpuject IVP 2 mg Q2HR PRN Administration Pain 8 to 10 Ondansetron HCl 4 mg 11/25/20 07:01 11/25/20 12:16 Ondansetron 4 Mg/2 Ml Vial IVP 4 mg Q6HR PRN Administration Nausea / Vomiting Prochlorperazine Edisylate 10 mg 11/25/20 08:43 11/25/20 09:10 Prochlorperazine 10 Mg/2 Ml Vial IVP 10 mg Q6HR PRN Administration Nausea / Vomiting Sodium Chloride 10 ml 11/25/20 07:01 11/25/20 12:17 Sodium Chloride Flush 0.9% 10 Ml Syringe IVP 10 ml PRN PRN Administration NEEDED PER PROVIDER ORDERS Sodium Chloride 10 ml 11/25/20 09:00 11/26/20 08:33 Sodium Chloride Flush 0.9% 10 Ml Syringe IVP Not Given 0100,0900,1700 ORTEGA - Physical Exam General Appearance: positive: No acute distress Abdomen: positive: Non-tender, Nml bowel sounds Impression/Plan - Problem List Problem List: Partial SBO- appears to be resolving. He has passed flatus.He has tolerated clears and will have diet advanced to soft for lunch today. If he tolerates diet, plan to discharge and would recommend GI referral for follow up, as he will likely need pill cam or other study yo evaluate small bowel.
[2020-11-26 10:06] VITALS: BP 122/73
[2020-11-26] MEDS ORDERED: LACTATED RINGERS 1,000 ML IV SCH (10:55)
--- NOTE | 2020-11-26 12:26 | Discharge Plan ---
Discharge Plan Problem Reviewed?: Yes Disposition: Home, Self Care Condition: Stable Diet: Soft Activity Restrictions: Activity as Tolerated Shower Restrictions: No Driving Restrictions: No Health Concerns: You were hospitalized to manage recurrent small bowel obstruction. Please advance your diet very slowly. You should be taking a low-fiber diet and stay well hydrated. Please have follow-up with your primary care provider and the referral to a mash filter press operator. Our general surgeon who saw you recommended that a pill- camera endoscopy be done in addition to upper endoscopy and colonoscopy, to look at the source of probable small bowel narrowing which keeps causing these obstructions. Plan of Treatment: As above. You may resume any pre-hospital medications that you normally took. Care Goals: Improvement in symptoms and stabilization are the goals. Assessment: The patient understands and is agreeable with the plan. Additional Instructions or Follow Up instructions: If you have new or worsening symptoms, call your PCP for advice or come to the ER. No Smoking: If you smoke, Please STOP! Call for help. Follow-up with: OSBALDO EUGENE MD [Primary Care Provider] -
--- NOTE | 2020-11-26 12:32 | DISCHARGE SUMMARY ---
Discharge Summary Admit Date: 11/25/20 Discharge Date: 11/26/20 Discharging Provider: Dr Cristina Mckeon Primary Care Provider: RANDAL Lowery (Dr Morrissey) Condition at Discharge: Stable Discharge Disposition: 01 Home, Self Care - HPI History of Present Illness: Pleasant 25 year old white male with a Hx of recurrent SBO, presents today with reports of sharp abdominal pain that began 11/24/20 at 0200 with associated nausea. Pain began in upper mid gastric area that radiates to left upper quadrant. Last bowel movement was on 11/23/20 and reported as soft, formed, and brown. Denies vomiting this time because he sought medical care early, he says. Denies melena. Reports normally eating a regular diet but limits garlic, onions, greasy, or spicy foods due to subsequent diarrhea which averages once weekly. Last meal was dinner on 11/24/20 that was his regular diet. Denies recent illness or begin in contact with anyone who is known to be ill. Reports recurring small bowel obstructions since 2009, next subsequent episode was in 2017 and he averages one episode each year after that. Denies pervious gastric surgeries. All his past SBO occurrences resolving spontaneously. Reports that a first-ever scheduled colonoscopy, as outpatient, was cancelled due COVID. Patient was once informed that his SBO reoccurrences are suspected to be related to "intestinal chemical scarring" that resulted from and taking "too many Coricidin pills to get high" when he was a teenager. He had imaging done in ED showing a partial SBO again now. He is being admitted for bowel rest, anti-emetics, pain meds and iv fluids. - CONSULTS | PROCEDURES Consultations: Dr Lloyd Silva, Gen Surgery - HOSPITAL COURSE Hospital Course: (1) SBO (small bowel obstruction) Surgical consult was done and recommendations were for management with NG tube for suction. An NG tube was placed but the patient stated he could not tolerate it because of pain in his neck and demanded it be removed. He was ordered to have continued bowel rest with NPO status and he received IV hydration with LR, prn pain meds and prn anti-emetics. His bowel sounds returned, and he unexpectedly tolerated a clear liquid diet the very next day. This was advanced to pureed diet and he was felt to be stable for discharge. He was advised to have F/U with his PCP fror referral for the endoscopies, which may include need for a pill cam to evaluate his small bowel, where obstructions recur. (2) Acute anxiety He has a history of anxiety and takes hydroxyzine 25mg PO daily prn, which we continued here. - ALLERGIES Allergies/Adverse Reactions: Allergies Allergy/AdvReac Type Severity Reaction Status Date / Time No Known Drug Allergies Allergy Verified 11/25/20 04:02 - MEDICATIONS Home Medications: Ambulatory Orders Medication Instructions Recorded Confirmed hydrOXYzine HCL [Hydroxyzine HCl] 25 mg PO DAILY 11/25/20 11/25/20 - PHYSICAL EXAM AT DISCHARGE General Appearance: positive: No acute distress, Alert Eyes Bilateral: positive: Normal inspection, PERRL, EOMI ENT: positive: ENT inspection nml, No signs of dehydration Neck: positive: Nml inspection, Thyroid nml, No JVD Respiratory: positive: No respiratory distress, Breath sounds nml Cardiovascular: positive: Regular rate & rhythm, No murmur Abdomen: positive: Non-tender, Nml bowel sounds, No distention Skin: positive: Warm, Dry Extremities: positive: Non-tender, No pedal edema Neurologic/Psychiatric: positive: Oriented x3 (Non-focal) - LABS Result Diagrams: 11/25/20 04:11 11/26/20 08:00 - DIAGNOSTIC IMAGING Diagnostic Imaging Results: Final report reviewed - FOLLOW UP Follow Up: See PCP, (Dr Morrissey, at [facility]) for referral to GI for EGD, colonoscopy and pill cam evaluation. - TIME SPENT Time Spent in Discharge (Minutes): 30
== END 2020-11-26 13:10 | disposition home or self-care (01) | DRG 390 ==
LOC: ED 03:52 → MS2 07:01
PROVIDERS: ADMIT Internal Medicine; ATTEND Internal Medicine
DX: K56.600 Partial intestinal obstruction, unspecified as to cause (principal); F41.9 Anxiety disorder, unspecified; Z20.822 Contact with and (suspected) exposure to COVID-19; Z87.891 Personal history of nicotine dependence
CPT/HCPCS: 0202U; 36415; 71045; 74019; 74177; 80048; 80053; 81003; 83690; 83735; 85025; 96361; 96374; 96375; 96376; 99284; 99285; J1170; J1650; J7120; Q9967; 81001; 87086

== ENCOUNTER 2020-12-08 12:33 | Emergency (ER) | payer OTHER ==
--- NOTE | 2020-12-08 12:56 | ED Physician Documentation ---
PD HPI CHEST PAIN - Stated complaint Stated Complaint: HEART PALPITATIONS - Chief complaint Chief Complaint: Cardiac - History obtained from History obtained from: Patient - Additional information Additional information: Since 7 PM last night he has intermittent palpitations. Feeling like his heart is skipping a beat and then catching up. Does not drink caffeine to excess. Only prescribed med is hydroxyzine which he has not been taking in a few days. Denies chest pain or trouble breathing. Happens about every 10 minutes or so. No clear inciting factors or relieving factors. 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.) - Present Medications Home Medications: Ambulatory Orders Medication Instructions Recorded Confirmed hydrOXYzine HCL [Hydroxyzine HCl] 25 mg PO DAILY 11/25/20 11/25/20 - Allergies Allergies/Adverse Reactions: Allergies Allergy/AdvReac Type Severity Reaction Status Date / Time No Known Drug Allergies Allergy Verified 12/08/20 12:46 - Social History Does the pt smoke?: Yes Smoking Status: Current every day smoker Does the pt drink ETOH?: Yes Does the pt have substance abuse?: No - Immunizations Immunizations are current?: Yes - POLST Patient has POLST: No POLST Status: Full Code PD ED PE NORMAL - Vitals Vital signs reviewed: Yes - General General: Alert and oriented X 3, No acute distress - Cardiac Cardiac: RRR, No murmur - Respiratory Respiratory: No respiratory distress, Clear bilaterally - Abdomen Abdomen: Non tender - Neuro Neuro: Alert and oriented X 3, Normal speech Results - Vitals Vitals: Vital Signs - 24 hr 12/08/20 12:41 Temperature 36.8 C Heart Rate 80 Respiratory 15 Rate Blood Pressure 116/71 O2 Saturation 99 Oxygen O2 Source Room air - EKG (time done) 1238 Rate: Rate (enter#) (74) Rhythm: NSR [place]: Normal Intervals: Normal [place] QRS: Normal Ischemia: Normal ST segments Computer interpretation: Agree with computer - Labs Labs: Laboratory Tests 12/08/20 13:12 Sodium 141 Potassium 4.1 Chloride 103 Carbon Dioxide 28 Anion Gap 10.0 BUN 12 Creatinine 1.0 Estimated GFR (MDRD) 90 Glucose 111 H Calcium 9.2 Magnesium 2.0 PD MEDICAL DECISION MAKING - ED course ED course: On the monitor he has occasional PACs which correspond to his symptoms. He was counseled that this is likely a benign process but needs to follow-up with his physician. He declined beta-blockade. Departure - Departure Disposition: 01 Home, Self Care Clinical Impression: Premature atrial contractions Condition: Good Record reviewed to determine appropriate education?: Yes Instructions: ED Palpitations Comments: What we found today is that on the monitor you are having occasional premature atrial contractions. This is generally going to be benign. Follow-up with your doctor. Return for new or worsening symptoms.
[2020-12-08 13:29] LABS: CALCIUM 9.2 mg/dL (8.5-10.3); POTASSIUM 4.1 mmol/L (3.5-5.0)
[2020-12-08 13:36] VITALS: BP 115/62
== END 2020-12-08 13:36 | disposition home or self-care (01) ==
LOC: ED 12:33
DX: I49.1 Atrial premature depolarization (principal); F17.200 Nicotine dependence, unspecified, uncomplicated
CPT/HCPCS: 36415; 80048; 83735; 93005; 99283; 99284

== ENCOUNTER 2021-07-02 21:10 | Observation (INO) | payer OTHER ==
[2021-07-02] MEDS ORDERED: MORPHINE 2 MG/ML CARPUJECT IVP STA (21:28)
[2021-07-02] MEDS ORDERED: SODIUM CHLORIDE 0.9% 1,000 ML IV STA (21:28)
[2021-07-02] MEDS ORDERED: ONDANSETRON 4 MG/2 ML VIAL IVP STA (21:28)
[2021-07-02] MEDS ORDERED: IOVERSOL 320 50 ML VIAL ONE (21:43)
[2021-07-02 21:44] LABS: BASOPHILS # (AUTO) 0.1 10^3/uL (0.0-0.1); EOSINOPHILS # (AUTO) 0.3 10^3/uL (0.0-0.7); EOSINOPHILS % (AUTO) 4.5 %; HCT - HEMATOCRIT 40.4 % (42.0-52.0); LYMPHOCYTES # (AUTO) 2.3 10^3/uL (1.5-3.5); LYMPHOCYTES % (AUTO) 38.1 %; MEAN CORPUSCULAR HGB CONC 34.7 g/dL (32.0-36.0); MEAN CORPUSCULAR VOLUME 89.4 fL (80.0-94.0); MEAN PLATELET VOLUME 9.4 fL (7.4-11.4); MONOCYTES # (AUTO) 0.7 10^3/uL (0.0-1.0); MONOCYTES % (AUTO) 11.3 %; NEUTROPHILS # (AUTO) 2.7 10^3/uL (1.5-6.6); NEUTROPHILS % (AUTO) 44.8 %; PLT - PLATELET COUNT 281 10^3/uL (130-450); RED BLOOD COUNT 4.52 10^6/uL (4.70-6.10)
[2021-07-02] MEDS ORDERED: IOVERSOL 320 50 ML VIAL PO ONE (21:50)
[2021-07-02 21:57] LABS: ALBUMIN 4.5 g/dL (3.2-5.5); ALBUMIN/GLOBULIN RATIO 1.5 (1.0-2.2); BILIRUBIN,TOTAL 0.9 mg/dL (0.2-1.0); CALCIUM 8.9 mg/dL (8.5-10.3); CREATININE 0.9 mg/dL (0.6-1.2); POTASSIUM 3.7 mmol/L (3.5-5.0); TOTAL PROTEIN 7.5 g/dL (6.7-8.2)
--- NOTE | 2021-07-02 22:28 | ED Physician Documentation ---
PD HPI ABD PAIN - Stated complaint Stated Complaint: ABD PX - Chief complaint Chief Complaint: Abd Pain - History obtained from History obtained from: Patient - Additional information Additional information: Patient is a 26-year-old male with history of previous small bowel obstructions, no previous abdominal surgeries presenting for evaluation of upper abdominal pain that started 1 hour prior to arrival as he was laying in bed. Pain is sharp andConstant. It does not radiate elsewhere other than to the upper abdomen. Nothing makes it better or worse. No associated fever, chest pain, difficulty breathing, nausea, vomiting. Patient reports it feels similar to when he has had small bowel obstructions in the past. He believes that his small bowel obstructions are related to swallowing a large amount of pills when he was 12 or 13 causing chemical scarring. He has been admitted in the past for small bowel obstruction and done well with medical management. His last bowel movement was today. He denies recent constipation. He does not believe he is passing gas. Review of Systems Constitutional: denies: Fever Nose: denies: Congestion Cardiac: denies: Chest pain / pressure, Palpitations Respiratory: denies: Dyspnea, Cough GI: reports: Abdominal Pain. 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.) - Present Medications Home Medications: Ambulatory Orders Medication Instructions Recorded Confirmed Pantoprazole [Protonix] 07/02/21 - Allergies Allergies/Adverse Reactions: Allergies Allergy/AdvReac Type Severity Reaction Status Date / Time No Known Drug Allergies Allergy Verified 07/02/21 21:20 - Social History Does the pt smoke?: Yes Smoking Status: Current every day smoker Does the pt drink ETOH?: Yes Does the pt have substance abuse?: No - Immunizations Immunizations are current?: Yes - POLST Patient has POLST: No POLST Status: Full Code PD ED PE NORMAL - General General: Alert and oriented X 3, No acute distress, Well developed/nourished - HEENT HEENT: Atraumatic, Moist mucous membranes - Neck Neck: Supple, no meningeal sign - Cardiac Cardiac: RRR, No murmur, Strong equal pulses - Respiratory Respiratory: No respiratory distress, Clear bilaterally - Abdomen Abdomen: Normal bowel sounds, Soft, Non distended, No organomegaly, Other (Bilateral upper quadrant abdominal tenderness, no rebound, no guarding) - Back Back: No CVA TTP - Derm Derm: Normal color - Extremities Extremities: No edema - Neuro Neuro: Alert and oriented X 3, No motor deficit, Normal speech - Psych Psych: Normal mood, Normal affect Results - Vitals Vitals: Vital Signs - 24 hr 07/02/21 07/02/21 07/03/21 21:16 22:02 00:01 Temperature 36.5 C Heart Rate 73 69 70 Respiratory 20 20 14 Rate Blood Pressure 134/71 H 117/85 H 126/82 H O2 Saturation 99 98 98 Oxygen O2 Source Room air - Labs Labs: Laboratory Tests 07/02/21 07/02/21 21:30 21:30 WBC 6.0 RBC 4.52 L Hgb 14.0 Hct 40.4 L MCV 89.4 MCH 31.0 MCHC 34.7 RDW 12.0 Plt Count 281 MPV 9.4 Neut # (Auto) 2.7 Lymph # (Auto) 2.3 [place] # (Auto) 0.7 Eos # (Auto) 0.3 Baso # (Auto) 0.1 Absolute Nucleated RBC 0.00 Nucleated RBC % 0.0 Sodium 139 Potassium 3.7 Chloride 101 Carbon Dioxide 28 Anion Gap 10.0 BUN 12 Creatinine 0.9 Estimated GFR (MDRD) 100 Glucose 86 Calcium 8.9 Total Bilirubin 0.9 AST 23 ALT 31 Alkaline Phosphatase 53 Total Protein 7.5 Albumin 4.5 Globulin 3.0 Albumin/Globulin Ratio 1.5 Lipase 35 PD MEDICAL DECISION MAKING - ED course ED course: Patient with abdominal pain and history of small bowel obstructions. Vital signs are reassuring. Abdominal exam with tenderness but no peritoneal signs. Labs reassuring. CT scan with evidence of small bowel obstruction. Patient has symptom improvement with medications and declines nasogastric tube. Surgery was consulted and patient to be placed in observation for further management. 1201 - D/W Dr. Guerra, will see in AM, okay to hold on NG unless distended, very uncomfortable or vomiting. 1204 - D/W Dr. Escudero. Obs Departure - Departure Disposition: ED Place in Observation Clinical Impression: Small bowel obstruction Condition: Stable
[2021-07-02] MEDS ORDERED: IOVERSOL 320 100 ML VIAL IVP ONE ×2 (22:48→23:17)
--- NOTE | 2021-07-02 23:51 | CT Report ---
PROCEDURE: Abdomen/Pelvis W INDICATIONS: upper abd pain/ history of SBO CONTRAST: IV CONTRAST: Optiray 320 ml: 100 PO CONTRAST: Optiray 320 ml50 TECHNIQUE: After the administration of weight appropriate dose of intravenous contrast, 5 mm thick sections acqu ired from the diaphragms to the symphysis. 5 mm thick coronal and sagittal reformats were acquired. For radiation dose reduction, the following was used: automated exposure control, adjustment of mA and/or kV according to patient size. COMPARISON: 11/25/2020. FINDINGS: Image quality: Excellent. ABDOMEN: Lung bases: Lung bases are clear. Heart size is normal. Solid organs: Hepatic steatosis. No focal hepatic abnormalities. Spleen is unremarkable. Gallbladder is unremarkable. Biliary system is non dilated. Pancreas enhances normally. No adrenal nodules. K idneys demonstrate normal size and enhancement, without hydronephrosis. Peritoneum and bowel: There is dilated small bowel with associated fecalization noted predominantly in the mid abdomen. Transition point is noted slightly left of midline best seen on image 63/series 3 and image 21/36. Small bowel is decompressed distal to this point. No evidence for perforation or ab scess formation. No significant free fluid seen. Visualized colon and stomach appear unremarkable. Nodes and vessels: No retroperitoneal or mesenteric adenopathy by size criteria. Aorta and inferior vena cava are normal in size. Miscellaneous: No ventral hernias. PELVIS: Genitourinary: Bladder wall thickness is normal. Miscellaneous: No inguinal hernias or adenopathy. Bones: No suspicious bony lesions. No vertebral body compression fractures. IMPRESSION: 1. Small bowel obstruction involving the mid abdomen with transition point noted slightly to the left of midline. There is mild circumferential wall thickening and stranding near the transition point. F indings may be related to chronic inflammatory/infectious process. There is associated fecalization p roximal to the transition point suggestive of delayed transit. Oral contrast is not visualized distal to the transition point. 2. Hepatic steatosis. Reviewed by: Tee Contreras MD on 07/02/2021 11:52 PM PDT Approved by: Tee Contreras MD on 07/02/2021 11:52 PM PDT Station ID: [id number]
[2021-07-03] MEDS ORDERED: MORPHINE 2 MG/ML CARPUJECT IVP PRN (00:04)
[2021-07-03] MEDS ORDERED: ONDANSETRON ODT 4 MG TABLET TL PRN (00:04)
[2021-07-03] MEDS ORDERED: SODIUM CHLORIDE FLUSH 0.9% 10 ML SYRINGE IVP PRN (00:04)
--- NOTE | 2021-07-03 00:27 | HISTORY & PHYSICAL EXAMINATION ---
Chief Complaint - Chief Complaint Chief Complaint: epigastric abd pain History of Present Illness - Admitted From Admitted From:: home via ER - History Obtained [facility] History obtained from: patient and ER MD Exam Limitations: none. - History of Present Illness HPI Comment/Other: 26-year-old male who is been having intermittent bowel obstructions since approximately 2012 or so. They all present with the same pattern of sudden onset nausea, vomiting, mid abdominal pain. 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 He does not have inflammatory bowel disease. He is never had previous abdominal surgery. His episodes usually resolve with expectant medical management of pain control, nausea control. General surgery has been called with this current episode. General surgery has been called for every episode that has been admitted for. Appears at this point he has not needed surgical intervention.The patient tells me that he has had a work-up in the last year. He has had an upper endoscopy and a lower endoscopy. When I describe an enteroscopy he states that he thinks he has had 1 of those 2. So far nothing has been found as the cause of this. He now presents with epigastric pain that is the same pain he gets with small bowel obstructions. Is been going on for 45 minutes before he came to the ER. He already had a small formed stool around 8 pm (he was traiged at 9:16 pm). He states flatus was at 11 pm. But there is no vomiting. There is nausea. The pain waxes and wanes. There has been no change in his diet. No change in bowel habits.NOthing changed in pattern before today. Admission temperature is 36.5. Heart rate was 73. Blood pressure 134/71. Respirations 20 needs 99% on room air. The emergency room provider who saw him noted normal bowel sounds. A soft nondistended belly. No organomegaly. He had bilateral upper quadrant abdominal tenderness without rebound or guarding. CBC was normal. CMP was normal. CT of abdomen and pelvis had dilated small bowel with associated fecalization noted predominantly in the mid abdomen. Transition point noted slightly to the left of midline. Small bowel is decompressed distal to this point. No evidence of perforation or abscess formation. No significant free fluid. Oral contrast was not visualized distal to the transition point. He did have a fatty liver. As such the emergency room provider is asking for the patient to be placed in observation for another small bowel obstruction. With the last admission the patient flatly refused an NG tube. He said it hurts too much in the back of his throat and refused to have it. He is declining an NG tube again with this admission. 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 Dad has GERD. Sisters x2 and Brothers x3 healthy.), Father: Alive and Well, Sister: Alive and Well, Brother: Alive and Well Family History Comment/Other: pt report his parants both are health. His siblings are also healthy. Living arrangement: At home Living Situation: With spouse/s.o. Social History Notes: pt is from [place] and lives here with his . Reports working in the [employer] in [place]. he denies currently smoking, quit 2019 with a 5 pack years. Denies alcohol and drug issue. - Substance History Use: Uses substance without health or social issues: NONE Abuse: Recurrent use of substance despite neg consequences: NONE Dependence: Experiences withdrawal or developed tolerances: NONE - POLST Patient has POLST: No POLST Status: Full Code Meds/Allgy - Home Medications Home Medications: Ambulatory Orders Medication Instructions Recorded Confirmed Pantoprazole [Protonix] 07/02/21 - Allergies Allergies/Adverse Reactions: Allergies Allergy/AdvReac Type Severity Reaction Status Date / Time No Known Drug Allergies Allergy Verified 07/02/21 21:20 Review of Systems - Constitutional Constitutional: denies: Fatigue, Fever, Chills, Malaise, Diaphoresis, Night sweats - Eyes Eyes: denies: Pain, Irritation, Amaurosis, Blurred vision - Ears, Nose & Throat Ears, Nose & Throat: denies: Ear pain, Hearing loss, Hearing aids, Nasal obstruction, Nasal congestion, Postnasal drainage, Dentures, Sore throat - Cardiovascular Cariovascular: denies: Irregular heart rate, Palpitations, Chest pain, Edema, Ex ertional dyspnea, Decr. exercise tolerance - Respiratory Respiratory: denies: Cough, Sputum production, Wheezing, Snoring, SOB at rest, SOB with exertion - Gastrointestinal Gastrointestinal: reports: Abdominal pain, Abdominal distention, Nausea. denies: Diarrhea, Change in bowel habits, Rectal bleeding, Vomiting, Bile e mesis, Coffee grounds emesis, Reflux/heartburn - Genitourinary Genitourinary: denies: Dysuria, Frequency, Urgency, Incontinence - Musculoskeletal Musculoskeletal: denies: Muscle pain, Back pain, Muscle aches, Joint pain - Integumentary Integumentary: denies: Rash, Pruritis, Lesions, Dryness - Neurological Neurological: denies: General weakness, Focal weakness, Headache, Dizziness, Pre-existing deficit, Abnormal gait - Psychiatric Psychiatric: denies: Depression, Anxiety, Suicidal - Endocrine Endocrine: denies: Polyuria, Polydypsia, Polyphagia - Hematologic/Lymphatic Hematologic/Lymphatic: denies: Anemia, Bruising, Petechiae Prior Level of Functionality: Completely independent with activities of daily living. Fully employed. No use of durable medical equipment Exam - Vital Signs Reviewed Vital Signs: Yes Vital Signs: Vital Signs x48h Temp Pulse Resp BP Pulse Ox 07/03/21 00:05 63 18 126/82 H 97 07/03/21 00:01 70 14 126/82 H 98 07/02/21 22:02 69 20 117/85 H 98 07/02/21 21:16 36.5 C 73 20 134/71 H 99 Conclusion/Plan - Problem List (1) Recurrent intestinal obstruction Conclusion/Plan: This is a puzzling medical problem. The patient does not have inflammatory bowel disease. He has no previous abdominal surgeries that would cause adhesions. He states that it is scarring from Coricidin tablets that he took when he was younger. Plan: Observation stay Expectant management of symptoms to include pain management, nausea management until he is passing flatus and passing stool. With his previous stays this took anywhere from 1 day to 3 days. As such will be observation. General surgery is already been notified. [employer] so his medical records are not easily available to us. Nevertheless, I will see if daytime doctor can ask for his medical records tomorrow morning to see if he could look at the colonoscopy and upper endoscopy reports. - Lab Results Lab results reviewed: Yes Fish Bones: 07/02/21 21:30 07/02/21 21:30 - Diagnostic Imaging Results Diagnostic Imaging Results: positive: Final report reviewed Core Measures - Anticipated LOS I expect patient to be DC'd or transferred within 96 hours.: Yes - DVT/VTE - Prophylaxis VTE/DVT Device ordered at admit?: Yes
[2021-07-03] MEDS: ONDANSETRON 4 MG/2 ML VIAL IVP PRN ×2 (01:13→08:36)
[2021-07-03] MEDS: SODIUM CHLORIDE FLUSH 0.9% 10 ML SYRINGE IVP SCH ×4 (01:14→23:34)
[2021-07-03] MEDS: LACTATED RINGERS 1,000 ML IV SCH ×3 (01:14→21:10)
[2021-07-03] MEDS: HYDROmorphone 1 MG/ML CARPUJECT IVP PRN ×6 (03:18→23:34)
[2021-07-03 05:20] LABS: BASOPHILS % (AUTO) 0.4 %; EOSINOPHILS % (AUTO) 0.4 %; HCT - HEMATOCRIT 40.8 % (42.0-52.0); HGB - HEMOGLOBIN 14.1 g/dL (14.0-18.0); LYMPHOCYTES # (AUTO) 0.8 10^3/uL (1.5-3.5); LYMPHOCYTES % (AUTO) 8.8 %; MEAN CORPUSCULAR HEMOGLOBIN 30.9 pg (27.0-31.0); MEAN CORPUSCULAR HGB CONC 34.6 g/dL (32.0-36.0); MEAN CORPUSCULAR VOLUME 89.5 fL (80.0-94.0); MEAN PLATELET VOLUME 9.9 fL (7.4-11.4); MONOCYTES # (AUTO) 0.4 10^3/uL (0.0-1.0); MONOCYTES % (AUTO) 4.6 %; NEUTROPHILS # (AUTO) 8.2 10^3/uL (1.5-6.6); NEUTROPHILS % (AUTO) 85.5 %; PLT - PLATELET COUNT 290 10^3/uL (130-450); RED BLOOD COUNT 4.56 10^6/uL (4.70-6.10); WHITE BLOOD COUNT 9.6 x10^3/uL (4.8-10.8)
[2021-07-03 05:26] LABS: CALCIUM 9.1 mg/dL (8.5-10.3); POTASSIUM 3.8 mmol/L (3.5-5.0)
[2021-07-03] MEDS: PROMETHAZINE INJ 25 MG in SODIUM CHLORIDE 0.9% 50 ML IV PRN ×2 (10:39→18:33)
--- NOTE | 2021-07-03 10:40 | PHARMACY PROGRESS NOTE ---
- Best Possible Medication History Admit Date and Time: 07/03/21 0004 Processed by: Pharmacy Medication History completed: Yes Patient Interview: Completed Secondary Source(s): Pharmacy records, Insurance records As the person ultimately responsible for medication therapy, providers are able to order a medication from an existing home medication list in [facility] via the "Reconcile Routine" prior to Confirmation of that medication by customer support technician. Such practice is discouraged except when the physician, in their clinical judgment, deems that a medical need exists for a medication without regard to previous use.
--- NOTE | 2021-07-03 15:08 | CONSULTATION NOTE ---
Referring Provider Consult Date: 07/03/21 Chief Complaint - Chief Complaint Chief Complaint: abdominal pain History of Present Illness - Admitted From Admitted From:: ed - History Obtained From Records Reviewed: yes History obtained from: pt Exam Limitations: none - History of Present Illness HPI Comment/Other: Recurring small bowel obstructions over many years. He states in between bouts of obstruction he is completely well. Bouts of obstruction may be occurring more frequently. in the past he could go a couple years without problem. He was seen and evaluated in the ED yesterday with abdominal pain. He threw up saliva and contrast twice yesterday after the ct scan and twice today. He feels improved; although still has some pain. Small flatus today. Does not feel like he is going to through up again. 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 Dad has GERD. Sisters x2 and Brothers x3 healthy.), Father: Alive and Well, Sister: Alive and Well, Brother: Alive and Well Family History Comment/Other: pt report his parants both are health. His siblings are also healthy. Living arrangement: At home Living Situation: With spouse/s.o. Social History Notes: pt is from [place] and lives here with his . Reports working in the [employer] in [place]. he denies currently smoking, quit 2019 with a 5 pack years. Denies alcohol and drug issue. - Substance History Use: Uses substance without health or social issues: NONE Abuse: Recurrent use of substance despite neg consequences: NONE Dependence: Experiences withdrawal or developed tolerances: NONE - POLST Patient has POLST: No POLST Status: Full Code Meds/Allgy - Home Medications Home Medications: Ambulatory Orders Medication Instructions Recorded Confirmed Pantoprazole [Protonix] 40 mg PO DAILY 07/02/21 07/03/21 - Allergies Allergies/Adverse Reactions: Allergies Allergy/AdvReac Type Severity Reaction Status Date / Time No Known Drug Allergies Allergy Verified 07/02/21 21:20 Review of Systems - Other Findings Other Findings: 10 pt ros as above otherwise unremarkable Exam - Vital Signs Vital Signs: Vital Signs x48h Temp Pulse Resp BP Pulse Ox 07/03/21 14:00 36.8 C 74 18 103/72 97 07/03/21 07:43 36.7 C 75 19 120/63 96 - Physical Exam General Appearance: positive: No acute distress, Alert Eyes Bilateral: positive: PERRL, EOMI, No scleral icterus ENT: positive: No signs of dehydration Neck: positive: No JVD Respiratory: positive: No respiratory distress, Breath sounds nml Cardiovascular: positive: Regular rate & rhythm Abdomen: positive: Non-tender, Other (minimal distension) Neurologic/Psychiatric: positive: Oriented x3 Conclusion/Plan - Problem List (1) Recurrent intestinal obstruction Conclusion/Plan: He is improved. Agree with current care. He states he is always well between episodes of obstruction. We discussed his obstruction is always in the same location and seems to be occurring more frequently. He should consider surgery with exploration and likely small bowel resection. If he continues to improve this can be scheduled electively, ie not during this hospitalization. He is . Works as an aviation tech. He would need 2 weeks off work followed by light duty. - Lab Results Lab results reviewed: Yes Fish Bones: 07/03/21 04:25 07/03/21 04:25 - Diagnostic Imaging Results Diagnostic Imaging Results: positive: Read contemporaneously (recurring sbo in the same location mid abdomen periumbilical)
[2021-07-03] MEDS ORDERED: oxyCODONE 5 MG TABLET PO PRN (16:02)
[2021-07-03] MEDS ORDERED: ACETAMINOPHEN 325 MG TABLET PO PRN (16:02)
[2021-07-04] MEDS: LACTATED RINGERS 1,000 ML IV SCH (06:34)
[2021-07-04] MEDS: SODIUM CHLORIDE FLUSH 0.9% 10 ML SYRINGE IVP SCH (07:56)
[2021-07-04 09:10] LABS: BASOPHILS % (AUTO) 0.6 %; EOSINOPHILS # (AUTO) 0.2 10^3/uL (0.0-0.7); EOSINOPHILS % (AUTO) 3.1 %; HCT - HEMATOCRIT 40.9 % (42.0-52.0); HGB - HEMOGLOBIN 13.7 g/dL (14.0-18.0); LYMPHOCYTES # (AUTO) 1.8 10^3/uL (1.5-3.5); MEAN CORPUSCULAR HEMOGLOBIN 30.6 pg (27.0-31.0); MEAN CORPUSCULAR HGB CONC 33.5 g/dL (32.0-36.0); MEAN CORPUSCULAR VOLUME 91.3 fL (80.0-94.0); MEAN PLATELET VOLUME 9.2 fL (7.4-11.4); MONOCYTES # (AUTO) 0.5 10^3/uL (0.0-1.0); MONOCYTES % (AUTO) 10.1 %; NEUTROPHILS # (AUTO) 2.6 10^3/uL (1.5-6.6); PLT - PLATELET COUNT 237 10^3/uL (130-450); RED BLOOD COUNT 4.48 10^6/uL (4.70-6.10); RED CELL DISTRIBUTION WIDTH 12.1 % (12.0-15.0); WHITE BLOOD COUNT 5.2 x10^3/uL (4.8-10.8)
[2021-07-04 09:20] LABS: CALCIUM 8.7 mg/dL (8.5-10.3); CREATININE 1.1 mg/dL (0.6-1.2); POTASSIUM 3.4 mmol/L (3.5-5.0)
[2021-07-04] MEDS ORDERED: POTASSIUM CHLORIDE 20 MEQ TABLET PO ONE (10:13)
[2021-07-04 12:33] VITALS: BP 115/65
--- NOTE | 2021-07-04 12:43 | Discharge Plan ---
Discharge Plan Problem Reviewed?: Yes Disposition: Home, Self Care Condition: Stable Prescriptions: Ondansetron Odt [Zofran Odt] 4 mg TL Q6H PRN #10 tablet PRN Reason: Nausea / Vomiting Diet: Regular Activity Restrictions: Activity as Tolerated Health Concerns: You were admitted to the hospital again because of a bowel obstruction. You were treated with nausea medication, IV fluids, pain control. Your symptoms have since improved and you are tolerating a diet. We believe you keep getting these recurrent episodes due to potential tightening of the bowel as your episodes of obstruction occur in the same area. We highly recommend you have a referral to general surgery to discuss potential surgical options to treat this. Plan of Treatment: It will be important to follow-up with the surgeon on an outpatient basis to discuss potential options to prevent the bowel obstruction from occurring again. You may take Tylenol as needed for pain control. A prescription for Zofran which is a nausea medication was sent to your pharmacy. Assessment: The patient expressed understanding of the treatment plan. Additional Instructions or Follow Up instructions: Please follow-up with your primary care physician in 1 to 2 weeks. They should make a referral to general surgery so that you can be evaluated for potential options to prevent this from occurring again. The number for the surgery office is [phone]. Dr. Agustin Guerra is the surgeon who saw you in the hospital. Please return to the emergency department if you develop worsening nausea, vomiting, abdominal pain. No Smoking: If you smoke, Please STOP! Call for help. Follow-up with: Agustin Guerra MD [Provider Admit Priv/Credential] -
--- NOTE | 2021-07-04 12:56 | DISCHARGE SUMMARY ---
"Discharge Summary Admit Date: 07/03/21 Discharge Date: 07/04/21 Discharging Provider: Axel Hanley Primary Care Provider: [facility] clinic Code Status: Attempt Resuscitation Condition at Discharge: Stable Discharge Disposition: 01 Home, Self Care - DIAGNOSES Admission Diagnoses: Recurrent intestinal obstruction Discharge Diagnoses with Status of Each Condition: Recurrent intestinal obstruction - resolved. - HPI History of Present Illness: H&P per Dr. Escudero: 26-year-old male who is been having intermittent bowel obstructions since approximately 2011 or so. They all present with the same pattern of sudden onset nausea, vomiting, mid abdominal pain. 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 He does not have inflammatory bowel disease. He is never had previous abdominal surgery. His episodes usually resolve with expectant medical management of pain control, nausea control. General surgery has been called with this current episode. General surgery has been called for every episode that has been admitted for. Appears at this point he has not needed surgical intervention.The patient tells me that he has had a work-up in the last year. He has had an upper endoscopy and a lower endoscopy. When I describe an enteroscopy he states that he thinks he has had 1 of those 2. So far nothing has been found as the cause of this. He now presents with epigastric pain that is the same pain he gets with small bowel obstructions. Is been going on for 45 minutes before he came to the ER. He already had a small formed stool around 8 pm (he was traiged at 9:16 pm). He states flatus was at 11 pm. But there is no vomiting. There is nausea. The pain waxes and wanes. There has been no change in his diet. No change in bowel habits.NOthing changed in pattern before today. Admission temperature is 36.5. Heart rate was 73. Blood pressure 134/71. Respirations 20 needs 99% on room air. The emergency room provider who saw him noted normal bowel sounds. A soft nondistended belly. No organomegaly. He had bilateral upper quadrant abdominal tenderness without rebound or guarding. CBC was normal. CMP was normal. CT of abdomen and pelvis had dilated small bowel with associated fecalization noted predominantly in the mid abdomen. Transition point noted slightly to the left of midline. Small bowel is decompressed distal to this point. No evidence of perforation or abscess formation. No significant free fluid. Oral contrast was not visualized distal to the transition point. He did have a fatty liver. As such the emergency room provider is asking for the patient to be placed in observation for another small bowel obstruction. With the last admission the patient flatly refused an NG tube. He said it hurts too much in the back of his throat and refused to have it. He is declining an NG tube again with this admission. - CONSULTS | PROCEDURES Consultations: General Surgery - HOSPITAL COURSE Hospital Course: He was placed in observation due to recurrent small bowel obstruction. He never required NG tube. He was treated with Dilaudid for pain control as well as IV fluids and antiemetics. He was made n.p.o. for the first 12 hours. He was seen by general surgery who recommended conservative management at this time. His symptoms improved and he was started on a clear diet for dinner the day prior to discharge. He tolerated this well and his diet was advanced further. He has had no episodes of emesis and his pain is now resolved. He has not had a bowel movement but has had flatus. He was seen by general surgery again and they recommended outpatient follow-up for consideration of elective diagnostic laparoscopy and consideration of a potential small bowel resection given the recurrent bowel obstruction has the transition point at the same area each time. The patient felt well enough to go home at this point and he is aware of the symptoms that would require him to seek medical attention. He was provided with Zofran as needed on discharge and he was asked take Tylenol as needed for pain. - ALLERGIES Allergies/Adverse Reactions: Allergies Allergy/AdvReac Type Severity Reaction Status Date / Time No Known Drug Allergies Allergy Verified 07/02/21 21:20 - MEDICATIONS Home Medications: Ambulatory Orders Medication Instructions Recorded Confirmed Pantoprazole [Protonix] 40 mg PO DAILY 07/02/21 07/03/21 Ondansetron Odt [Zofran Odt] 4 mg TL Q6H PRN #10 tablet 07/04/21 - PHYSICAL EXAM AT DISCHARGE General Appearance: positive: No acute distress, Alert Eyes Bilateral: positive: Normal inspection, Conjunctivae nml ENT: positive: ENT inspection nml Neck: positive: Nml inspection Respiratory: positive: No respiratory distress. negative: Wheezes, Rales Cardiovascular: positive: Regular rate & rhythm, No murmur. negative: Tachycardia Abdomen: positive: Nml bowel sounds, No distention, Tenderness (Very mild tenderness over the umbilicus). negative: Non-tender, Guarding, Rebound Skin: positive: Warm, Dry Extremities: positive: No pedal edema Neurologic/Psychiatric: positive: Motor nml. negative: Disoriented to person, Disoriented to place Physical Exam Other/Comments: Vital Signs - 24 hr 07/03/21 07/03/21 07/03/21 14:00 15:45 20:00 Temperature 36.8 C 37.4 C 37.0 C Heart Rate [ 74 69 74 Brachial] Respiratory 18 16 16 Rate Blood Pressure 103/72 105/58 L 112/54 L [Left Brachial artery] O2 Saturation 97 94 95 07/03/21 07/04/21 07/04/21 23:30 05:00 07:52 Temperature 36.9 C 36.6 C 36.6 C Heart Rate [ 77 63 75 Brachial] Respiratory 16 16 18 Rate Blood Pressure 108/66 114/52 L 106/61 [Left Brachial artery] O2 Saturation 95 94 97 07/04/21 12:32 Temperature 36.5 C Heart Rate [ 76 Brachial] Respiratory 17 Rate Blood Pressure 115/65 [Left Brachial artery] O2 Saturation 98 Oxygen O2 Source Room air - LABS Result Diagrams: 07/04/21 08:59 07/04/21 08:59 - DIAGNOSTIC IMAGING Diagnostic Imaging Results: Final report reviewed - FOLLOW UP Follow Up: It was recommended that he follow-up with his primary care physician to have a referral to general surgery. He was provided with the phone number for the general surgery clinic. - TIME SPENT Time Spent in Discharge (Minutes): 31"
--- NOTE | 2021-07-04 12:58 | PROVIDER PROGRESS NOTE ---
Subjective - Prog Note Date Prog Note Date: 07/04/21 - Subjective Pt reports feeling: Improved Subjective: tolerating clears well. pain resolved. no nausea Objective - Vital Signs/Intake & Output Vital Signs: Vital Signs x48h Temp Pulse Resp BP Pulse Ox 07/04/21 12:32 36.5 C 76 17 115/65 98 07/04/21 07:52 36.6 C 75 18 106/61 97 07/04/21 05:00 36.6 C 63 16 114/52 L 94 Intake & Output: Intake & Output 07/01/21 07/02/21 07/03/21 07/04/21 23:59 23:59 23:59 23:59 Intake Total 1000 2610.333 2668.34 Output Total 1975 Balance 1000 054.780 1576.34 - Objective General Appearance: positive: No acute distress, Alert Eyes Bilateral: positive: PERRL, EOMI, No scleral icterus ENT: positive: No signs of dehydration Neck: positive: No JVD Respiratory: positive: No respiratory distress Abdomen: positive: Non-tender, No distention Neurologic/Psychiatric: positive: Oriented x3 - Lab Results Fish Bones: 07/04/21 08:59 07/04/21 08:59 Other Labs: Lab Results x24hrs 07/04/21 07/04/21 Range/Units 08:59 08:59 WBC 5.2 (4.8-10.8) x10^3/uL RBC 4.48 L (4.70-6.10) 10^6/uL Hgb 13.7 L (14.0-18.0) g/dL Hct 40.9 L (42.0-52.0) % MCV 91.3 (80.0-94.0) fL MCH 30.6 (27.0-31.0) pg MCHC 33.5 (32.0-36.0) g/dL RDW 12.1 (12.0-15.0) % Plt Count 237 (130-450) 10^3/uL MPV 9.2 (7.4-11.4) fL Neut # (Auto) 2.6 (1.5-6.6) 10^3/uL Lymph # (Auto) 1.8 (1.5-3.5) 10^3/uL Campbell # (Auto) 0.5 (0.0-1.0) 10^3/uL Eos # (Auto) 0.2 (0.0-0.7) 10^3/uL Baso # (Auto) 0.0 (0.0-0.1) 10^3/uL Absolute Nucleated RBC 0.00 x10^3/uL Nucleated RBC % 0.0 /100WBC Sodium 140 (135-145) mmol/L Potassium 3.4 L (3.5-5.0) mmol/L Chloride 100 L (101-111) mmol/L Carbon Dioxide 30 (21-32) mmol/L Anion Gap 10.0 (6-13) BUN 8 (6-20) mg/dL Creatinine 1.1 (0.6-1.2) mg/dL Estimated GFR (MDRD) 80 L (>89) Glucose 100 (70-100) mg/dL Calcium 8.7 (8.5-10.3) mg/dL Assessment/Plan - Problem List (1) Recurrent intestinal obstruction Impression: doing well. agree with care and plan. ok for d/c and to slowly advance diet as tolerated at home. recommend follow up with surgery. this is discussed with him. 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
== END 2021-07-04 14:01 | disposition home or self-care (01) ==
LOC: ED 21:10 → MS2 07-03 00:04
PROVIDERS: ADMIT Specialist; ATTEND Internal Medicine
DX: K56.609 Unspecified intestinal obstruction, unspecified as to partial versus complete obstruction (principal); Z20.822 Contact with and (suspected) exposure to COVID-19; Z87.891 Personal history of nicotine dependence
CPT/HCPCS: 36415; 74177; 80048; 80053; 83690; 85025; 87635; 96365; 96366; 96375; 96376; 99284; 99285; A9270; G0378; J1170; J7040; J7120; Q0162; Q9967